=== PATIENT | female | born 1955 | race Caucasian/White ===

== ENCOUNTER 2016-02-23 11:39 | Inpatient (IN) | payer BC ==
[~2016-02-23] VITALS: Ht 167.6 cm; Wt 159.9 kg
[~2016-02-23 11:39] MED LIST: AMLODIPINE BESY10 MG PO; ATORVASTATIN CA40 MG PO; BLOOD GLUCOSE1 EACH MC; CATAPRES0.1 MG PO; CENTRUM COMPLE1 EACH PO; CENTRUM SILVER1 EAC3 PO; COUMADIN2.5 MG PO; COUMADIN5 MG PO; DIAZEPAM5 MG PO; DILAUDID2 MG PO; ERGOCALCIF50000 UNIT PO; EXFORGE HCT 5-1 EACH PO; FEROSUL325 MG PO; FERROUS SULFAT325 MG PO; FLAGYL500 MG PO; FUROSEMIDE40 MG PO; GLUCOPHAGE500 MG PO; HYDROCHLOROTH12.5 M3 PO; HYZAAR 100-21 TABLET PO; KLOR-CON M1010 MEQ PO; LANCETS1 EACH MC; LOPRESSOR50 MG PO; LOSARTAN-HCTZ1 EAC3 PO; METFORMIN HCL500 MG PO; METHOCARBAMOL750 MG PO; METOPROLOL SUCC25 MG PO; METRONIDAZOLE500 MG PO; NORVASC10 MG PO; PERCOCET 10/1 TABLET PO; SIMVASTATIN40 M1 PO; TEST N'GO1 EACH MC; TOPROL XL25 MG PO; TYLENOL REGULA325 MG PO; VALIUM5 MG PO; WARFARIN SODIUM5 MG PO; XANAX XR0.5 MG PO; XANAX0.5 MG PO
[2016-02-23 12:39] LABS: HEMATOCRIT 46.4 % (36.0-46.0); MCH 29.4 PG (29.0-34.0); MCHC 31.3 G/DL (30.0-36.0); MCV 94.1 FL (83-99); MEAN PLAT.VOLUME 11.1 uM^3 (9.5-12.4); PLATELET COUNT 254 K/uL (156-360); RBC DIS.WIDTH-CV 14.6 % (11.8-14.6); RBC DIS.WIDTH-SD 47.8 % (39-53); RED BLOOD COUNT 4.93 M/uL (3.80-5.20); WHITE BLOOD COUNT 10.9 K/uL (4.1-10.2)
[2016-02-23 12:51] LABS: CHLORIDE 95 mEq/L (99-109); POTASSIUM 3.8 mEq/L (3.7-5.4); SODIUM 140 mEq/L (136-147)
[2016-02-23 12:53] LABS: GLUCOSE 137 mg/dL (70-99)
[2016-02-23 12:54] LABS: ANION GAP 15 MEQ/L (2-14)
[2016-02-23 12:57] LABS: GFR ESTIMATE (CALCULATED) > 59 mL/min/
[2016-02-23 12:58] LABS: UREA NITROGEN (BUN) 9 mg/dL (9-23)
[2016-02-23 16:03] LABS: TOTAL BILIRUBIN 1.3 mg/dL (0.0-1.0)
[2016-02-23 16:04] LABS: ALKALINE PHOSPHATASE 118 IU/L (3-129)
[2016-02-23 16:07] LABS: DIRECT BILIRUBIN 0.4 mg/dL (0.0-0.3)
[2016-02-23 16:13] LABS: EOSINOPHIL (%) 1.6 % (0-5); EOSINOPHIL COUNT 0.2 K/uL (0-0.3); IMMATURE GRANULOCYTE (%) 0.2 % (0.0-0.7); LYMPHOCYTE COUNT 1.8 K/uL (1.0-2.8); MONOCYTE (%) 6.9 % (3-12); MONOCYTE COUNT 0.7 K/uL (0-0.8); NEUTROPHIL (%) 73.7 % (45-76); NEUTROPHIL COUNT 7.6 K/uL (1.8-6.4)
[2016-02-23] MEDS ORDERED: NORVASC5 MG PO (17:15)
[2016-02-23] MEDS ORDERED: COZAAR100 MG PO (17:15)
[2016-02-23] MEDS ORDERED: LASIX80 MG PO (17:18)
[2016-02-23] MEDS ORDERED: PRADAXA150 MG PO (17:19)
[2016-02-23 20:04] VITALS: BP 141/73
[2016-02-24 05:57] VITALS: BP 136/62
[2016-02-24 07:02] LABS: POINT-OF-CARE METER ID UU13113700
[2016-02-24 07:53] VITALS: BP 114/65
[2016-02-24 10:27] LABS: EOSINOPHIL (%) 3.8 % (0-5); EOSINOPHIL COUNT 0.4 K/uL (0-0.3); HEMATOCRIT 44.8 % (36.0-46.0); IMMATURE GRANULOCYTE (%) 0.2 % (0.0-0.7); LYMPHOCYTE COUNT 1.5 K/uL (1.0-2.8); MCH 30.7 PG (29.0-34.0); MCHC 31.9 G/DL (30.0-36.0); MCV 96.1 FL (83-99); MEAN PLAT.VOLUME 11.7 uM^3 (9.5-12.4); MONOCYTE (%) 7.8 % (3-12); MONOCYTE COUNT 0.8 K/uL (0-0.8); NEUTROPHIL (%) 72.2 % (45-76); PLATELET COUNT 239 K/uL (156-360); RBC DIS.WIDTH-CV 14.7 % (11.8-14.6); RBC DIS.WIDTH-SD 51.7 % (39-53); RED BLOOD COUNT 4.66 M/uL (3.80-5.20); WHITE BLOOD COUNT 9.7 K/uL (4.1-10.2)
[2016-02-24 10:56] LABS: ANION GAP 7 MEQ/L (2-14); CHLORIDE 95 MEQ/L (99-109); GFR ESTIMATE (CALCULATED) > 59 mL/min/; GLUCOSE 162 mg/dL (70-99); POTASSIUM 3.6 MEQ/L (3.7-5.4); SAMPLE HEMOLYSIS CHECK 0; SAMPLE ICTERIC CHECK 0; SAMPLE LIPEMIA CHECK 0; SODIUM 139 MEQ/L (136-147); UREA NITROGEN (BUN) 9 mg/dL (9-23)
[2016-02-24 10:59] LABS: TROP-I INTERPRETATION NEGATIVE; TROPONIN-I < 0.01 ng/mL (0.0-0.30)
[2016-02-24 11:10] VITALS: BP 111/56
[2016-02-24 16:21] VITALS: BP 113/65
[2016-02-24 17:01] LABS: POINT-OF-CARE METER ID UU13113725
[2016-02-24 20:59] LABS: POINT-OF-CARE METER ID UU13113725
[2016-02-24 23:10] VITALS: BP 127/59
[2016-02-25 06:01] LABS: POINT-OF-CARE METER ID UU13113717
[2016-02-25 07:40] VITALS: BP 130/61
[2016-02-25 16:27] LABS: POINT-OF-CARE METER ID UU13113717
[2016-02-25 17:26] VITALS: BP 113/65
[2016-02-25 21:36] LABS: POINT-OF-CARE METER ID UU13113725
[2016-02-26 06:27] LABS: POINT-OF-CARE METER ID UU13113725
[2016-02-26 06:54] LABS: ANION GAP 8 MEQ/L (2-14); CHLORIDE 97 MEQ/L (99-109); GFR ESTIMATE (CALCULATED) 49 mL/min/; GLUCOSE 126 mg/dL (70-99); POTASSIUM 3.8 MEQ/L (3.7-5.4); SAMPLE HEMOLYSIS CHECK 0; SAMPLE ICTERIC CHECK 0; SAMPLE LIPEMIA CHECK 0; SODIUM 137 MEQ/L (136-147); UREA NITROGEN (BUN) 14 mg/dL (9-23)
[2016-02-26 07:26] LABS: HEMATOCRIT 39.8 % (36.0-46.0); MCHC 31.2 G/DL (30.0-36.0); MCV 96.4 FL (83-99); MEAN PLAT.VOLUME 11.6 uM^3 (9.5-12.4); PLATELET COUNT 192 K/uL (156-360); RBC DIS.WIDTH-CV 14.7 % (11.8-14.6); RED BLOOD COUNT 4.13 M/uL (3.80-5.20); WHITE BLOOD COUNT 10.4 K/uL (4.1-10.2)
[2016-02-26 08:46] VITALS: BP 142/91
[2016-02-26 11:36] LABS: POINT-OF-CARE METER ID UU13113717
[2016-02-26] MEDS ORDERED: KETOCONAZOLE60 GM TP (12:49)
[2016-02-26] MEDS ORDERED: BACTRIM,SEPT1 TABLET PO (12:49)
== END 2016-02-26 13:43 | disposition home or self-care (01) | DRG 603 ==
LOC: EME 11:39 → EDOF 18:07 → 5WEST 19:41 → 5EAST 02-24 14:00 → 5WEST 02-24 14:00 → 5EAST 02-24 16:17
PROVIDERS: Hospitalist; Internal Medicine
DX: L03.115 Cellulitis of right lower limb (principal); L97.819 Non-pressure chronic ulcer of other part of right lower leg with unspecified severity; Z99.81 Dependence on supplemental oxygen; L03.116 Cellulitis of left lower limb; E66.01 Morbid (severe) obesity due to excess calories; Z68.43 Body mass index [BMI] 50.0-59.9, adult; B00.1 Herpesviral vesicular dermatitis; I83.208 Varicose veins of unspecified lower extremity with both ulcer of other part of lower extremity and inflammation; I48.2 Chronic atrial fibrillation; I10 Essential (primary) hypertension; I89.0 Lymphedema, not elsewhere classified; Z85.038 Personal history of other malignant neoplasm of large intestine; E87.6 Hypokalemia; Z90.49 Acquired absence of other specified parts of digestive tract; E11.9 Type 2 diabetes mellitus without complications; Z86.711 Personal history of pulmonary embolism; Z86.718 Personal history of other venous thrombosis and embolism; E03.9 Hypothyroidism, unspecified; K43.2 Incisional hernia without obstruction or gangrene; Z79.84 Long term (current) use of oral hypoglycemic drugs; Z79.01 Long term (current) use of anticoagulants; J44.9 Chronic obstructive pulmonary disease, unspecified; L97.829 Non-pressure chronic ulcer of other part of left lower leg with unspecified severity
CPT/HCPCS: 71020; 80048; 80076; 82948; 83605; 83880; 84484; 85025; 85027; 87040; 87070; 87075; 87076; 87077; 87147; 87205; 93970; 94760; 94799; 99281; 99285; G0378; J1940; J3370

== ENCOUNTER 2016-06-17 17:22 | Inpatient (IN) | payer BC ==
[~2016-06-17] VITALS: Ht 167.6 cm; Wt 162.4 kg
[~2016-06-17 17:22] MED LIST changes: +BACTRIM,SEPT1 TABLET PO; +COZAAR100 MG PO; +KETOCONAZOLE60 GM TP; +LASIX80 MG PO; +NORVASC5 MG PO; +PRADAXA150 MG PO
[2016-06-17 19:46] LABS: BASOPHIL COUNT 0.1 K/uL (0-0.1); EOSINOPHIL (%) 1.7 % (0-5); EOSINOPHIL COUNT 0.5 K/uL (0-0.3); HEMATOCRIT 43.3 % (36.0-46.0); IMMATURE GRANULOCYTE (%) 0.8 % (0.0-0.7); IMMATURE GRANULOCYTE COUNT 0.2 K/uL; INSTRUMENT ABS NEUTROPHIL CT 21.5 K/uL; LYMPHOCYTE COUNT 2.7 K/uL (1.0-2.8); MCH 28.4 PG (29.0-34.0); MCHC 30.7 G/DL (30.0-36.0); MCV 92.3 FL (83-99); MEAN PLAT.VOLUME 10.7 uM^3 (9.5-12.4); MONOCYTE (%) 6.4 % (3-12); MONOCYTE COUNT 1.7 K/uL (0-0.8); NEUTROPHIL (%) 80.7 % (45-76); NEUTROPHIL COUNT 21.5 K/uL (1.8-6.4); PLATELET COUNT 261 K/uL (156-360); RBC DIS.WIDTH-CV 15.2 % (11.8-14.6); RBC DIS.WIDTH-SD 51.7 % (39-53); RED BLOOD COUNT 4.69 M/uL (3.80-5.20); WHITE BLOOD COUNT 26.6 K/uL (4.1-10.2)
[2016-06-17 19:56] LABS: CHLORIDE 95 mEq/L (99-109); POTASSIUM 4.6 mEq/L (3.7-5.4); SODIUM 132 mEq/L (136-147)
[2016-06-17 19:58] LABS: GLUCOSE 133 mg/dL (70-99)
[2016-06-17 19:59] LABS: ANION GAP 12 MEQ/L (2-14)
[2016-06-17 20:00] LABS: TOTAL BILIRUBIN 1.1 mg/dL (0.0-1.0)
[2016-06-17 20:01] LABS: ALKALINE PHOSPHATASE 135 IU/L (3-129)
[2016-06-17 20:02] LABS: GFR ESTIMATE (CALCULATED) 29 mL/min/
[2016-06-17 20:03] LABS: UREA NITROGEN (BUN) 41 mg/dL (9-23)
[2016-06-17 23:13] VITALS: BP 112/54
[2016-06-17 23:43] VITALS: BP 143/70
[2016-06-18] VITALS (7 sets, daily range): BP systolic 109–141; BP diastolic 55–70
[2016-06-18 08:41] LABS: EOSINOPHIL COUNT 0.4 K/uL (0-0.3); HEMATOCRIT 39.5 % (36.0-46.0); IMMATURE GRANULOCYTE (%) 0.7 % (0.0-0.7); IMMATURE GRANULOCYTE COUNT 0.2 K/uL; INSTRUMENT ABS NEUTROPHIL CT 17.6 K/uL; MCH 28.6 PG (29.0-34.0); MCHC 30.9 G/DL (30.0-36.0); MCV 92.5 FL (83-99); MONOCYTE (%) 6.2 % (3-12); MONOCYTE COUNT 1.3 K/uL (0-0.8); NEUTROPHIL (%) 81.8 % (45-76); NEUTROPHIL COUNT 17.6 K/uL (1.8-6.4); PLATELET COUNT 232 K/uL (156-360); RBC DIS.WIDTH-CV 15.1 % (11.8-14.6); RBC DIS.WIDTH-SD 51.6 % (39-53); RED BLOOD COUNT 4.27 M/uL (3.80-5.20); WHITE BLOOD COUNT 21.5 K/uL (4.1-10.2)
[2016-06-18 09:27] LABS: ANION GAP 13 MEQ/L (2-14); CHLORIDE 95 MEQ/L (99-109); GFR ESTIMATE (CALCULATED) 33 mL/min/; GLUCOSE 181 mg/dL (70-99); POTASSIUM 3.9 MEQ/L (3.7-5.4); SAMPLE HEMOLYSIS CHECK 0; SAMPLE ICTERIC CHECK 0; SAMPLE LIPEMIA CHECK 0; SODIUM 131 MEQ/L (136-147); UREA NITROGEN (BUN) 41 mg/dL (9-23)
[2016-06-18 15:44] LABS: TROP-I INTERPRETATION NEGATIVE; TROPONIN-I < 0.01 ng/mL (0.0-0.30)
[2016-06-18] MEDS ORDERED: NYSTATIN-TRIAMC15 GM TP (17:56)
[2016-06-18 22:00] LABS: TROP-I INTERPRETATION NEGATIVE; TROPONIN-I < 0.01 ng/mL (0.0-0.30)
[2016-06-19 01:30] LABS: TROP-I INTERPRETATION NEGATIVE; TROPONIN-I < 0.01 ng/mL (0.0-0.30)
[2016-06-19 03:19] VITALS: BP 128/62
[2016-06-19 07:10] VITALS: BP 126/69
[2016-06-19 07:21] LABS: EOSINOPHIL (%) 2.4 % (0-5); EOSINOPHIL COUNT 0.5 K/uL (0-0.3); HEMATOCRIT 39.7 % (36.0-46.0); IMMATURE GRANULOCYTE (%) 0.6 % (0.0-0.7); IMMATURE GRANULOCYTE COUNT 0.1 K/uL; INSTRUMENT ABS NEUTROPHIL CT 15.1 K/uL; LYMPHOCYTE COUNT 2.5 K/uL (1.0-2.8); MCH 28.3 PG (29.0-34.0); MCV 94.3 FL (83-99); MEAN PLAT.VOLUME 11.1 uM^3 (9.5-12.4); MONOCYTE (%) 10.3 % (3-12); MONOCYTE COUNT 2.1 K/uL (0-0.8); NEUTROPHIL (%) 74.2 % (45-76); NEUTROPHIL COUNT 15.1 K/uL (1.8-6.4); PLATELET COUNT 264 K/uL (156-360); RBC DIS.WIDTH-CV 14.9 % (11.8-14.6); RED BLOOD COUNT 4.21 M/uL (3.80-5.20); WHITE BLOOD COUNT 20.4 K/uL (4.1-10.2)
[2016-06-19 07:43] LABS: ALKALINE PHOSPHATASE 115 IU/L (3-129); ANION GAP 12 MEQ/L (2-14); CHLORIDE 101 MEQ/L (99-109); GFR ESTIMATE (CALCULATED) 44 mL/min/; GLUCOSE 127 mg/dL (70-99); MAGNESIUM 2.5 mg/dl (1.3-2.7); POTASSIUM 4.5 MEQ/L (3.7-5.4); SAMPLE HEMOLYSIS CHECK 0; SAMPLE ICTERIC CHECK 0; SAMPLE LIPEMIA CHECK 0; SODIUM 135 MEQ/L (136-147); TOTAL BILIRUBIN 0.9 MG/DL (0.0-1.0); UREA NITROGEN (BUN) 33 mg/dL (9-23); URIC ACID 8.1 mg/dL (3.1-9.2)
[2016-06-19 11:17] LABS: Estimated Average Glucose 140 mg/dL (70-123); HEMOGLOBIN A1c (GLYCOHEMOGLOB) 6.5 % HGB (Below 5.7)
[2016-06-19 12:00] VITALS: BP 118/95
[2016-06-19 15:35] VITALS: BP 126/68
[2016-06-19 19:12] VITALS: BP 151/68
[2016-06-19 22:30] LABS: POINT-OF-CARE METER ID UU14162508
[2016-06-20 00:10] VITALS: BP 136/65
[2016-06-20 04:11] VITALS: BP 156/67
[2016-06-20 06:28] LABS: POINT-OF-CARE METER ID UU14162508
[2016-06-20 07:00] LABS: BASOPHIL COUNT 0.1 K/uL (0-0.1); EOSINOPHIL COUNT 0.5 K/uL (0-0.3); HEMATOCRIT 39.7 % (36.0-46.0); IMMATURE GRANULOCYTE (%) 1.2 % (0.0-0.7); IMMATURE GRANULOCYTE COUNT 0.2 K/uL; INSTRUMENT ABS NEUTROPHIL CT 13.1 K/uL; LYMPHOCYTE COUNT 2.4 K/uL (1.0-2.8); MCH 28.4 PG (29.0-34.0); MCHC 30.2 G/DL (30.0-36.0); MCV 94.1 FL (83-99); MEAN PLAT.VOLUME 10.7 uM^3 (9.5-12.4); MONOCYTE (%) 9.2 % (3-12); MONOCYTE COUNT 1.7 K/uL (0-0.8); NEUTROPHIL (%) 72.7 % (45-76); NEUTROPHIL COUNT 13.1 K/uL (1.8-6.4); PLATELET COUNT 251 K/uL (156-360); RBC DIS.WIDTH-CV 14.7 % (11.8-14.6); RBC DIS.WIDTH-SD 51.2 % (39-53); RED BLOOD COUNT 4.22 M/uL (3.80-5.20)
[2016-06-20 07:29] LABS: ALKALINE PHOSPHATASE 125 IU/L (3-129); ANION GAP 8 MEQ/L (2-14); CHLORIDE 100 MEQ/L (99-109); GFR ESTIMATE (CALCULATED) 49 mL/min/; GLUCOSE 136 mg/dL (70-99); POTASSIUM 4.5 MEQ/L (3.7-5.4); SAMPLE HEMOLYSIS CHECK 0; SAMPLE ICTERIC CHECK 0; SAMPLE LIPEMIA CHECK 0; SODIUM 136 MEQ/L (136-147); UREA NITROGEN (BUN) 24 mg/dL (9-23)
[2016-06-20 07:33] LABS: TOTAL BILIRUBIN 0.6 MG/DL (0.0-1.0)
[2016-06-20 11:21] VITALS: BP 129/64
[2016-06-20 11:52] LABS: POINT-OF-CARE METER ID UU14162508
[2016-06-20 16:00] VITALS: BP 124/62
[2016-06-20 16:44] LABS: POINT-OF-CARE METER ID UU14162508
[2016-06-20 19:50] VITALS: BP 123/64
[2016-06-20 23:03] LABS: POINT-OF-CARE METER ID UU14162508
[2016-06-21 00:12] VITALS: BP 145/63
[2016-06-21 03:21] VITALS: BP 141/68
[2016-06-21 06:43] LABS: POINT-OF-CARE METER ID UU14162508
[2016-06-21 07:14] LABS: EOSINOPHIL (%) 4.3 % (0-5); EOSINOPHIL COUNT 0.7 K/uL (0-0.3); HEMATOCRIT 39.2 % (36.0-46.0); IMMATURE GRANULOCYTE (%) 2.1 % (0.0-0.7); IMMATURE GRANULOCYTE COUNT 0.3 K/uL; INSTRUMENT ABS NEUTROPHIL CT 11.5 K/uL; LYMPHOCYTE COUNT 2.2 K/uL (1.0-2.8); MCH 28.2 PG (29.0-34.0); MCHC 30.1 G/DL (30.0-36.0); MCV 93.8 FL (83-99); MEAN PLAT.VOLUME 10.2 uM^3 (9.5-12.4); MONOCYTE (%) 7.8 % (3-12); MONOCYTE COUNT 1.2 K/uL (0-0.8); NEUTROPHIL (%) 71.7 % (45-76); NEUTROPHIL COUNT 11.5 K/uL (1.8-6.4); PLATELET COUNT 269 K/uL (156-360); RBC DIS.WIDTH-CV 14.6 % (11.8-14.6); RBC DIS.WIDTH-SD 51.2 % (39-53); RED BLOOD COUNT 4.18 M/uL (3.80-5.20)
[2016-06-21 07:41] LABS: ALKALINE PHOSPHATASE 107 IU/L (3-129); ANION GAP 8 MEQ/L (2-14); CHLORIDE 103 MEQ/L (99-109); GFR ESTIMATE (CALCULATED) 54 mL/min/; GLUCOSE 135 mg/dL (70-99); POTASSIUM 4.5 MEQ/L (3.7-5.4); SAMPLE HEMOLYSIS CHECK 0; SAMPLE ICTERIC CHECK 0; SAMPLE LIPEMIA CHECK 0; SODIUM 137 MEQ/L (136-147); UREA NITROGEN (BUN) 19 mg/dL (9-23)
[2016-06-21 07:48] LABS: TOTAL BILIRUBIN 0.4 MG/DL (0.0-1.0)
[2016-06-21 08:16] VITALS: BP 138/75
[2016-06-21 11:30] VITALS: BP 142/62
[2016-06-21 11:48] LABS: POINT-OF-CARE METER ID UU14162508
[2016-06-21 15:10] VITALS: BP 141/65
[2016-06-21 16:21] LABS: POINT-OF-CARE METER ID UU14162508
[2016-06-21 23:52] VITALS: BP 131/63
[2016-06-22 04:33] LABS: ADD MIUA? NO; BILIRUBIN NEGATIVE; BLOOD NEGATIVE; COLOR YELLOW ((YELLOW)); GLUCOSE (STRIP) NEGATIVE; KETONES NEGATIVE; LEUKOCYTES NEGATIVE; NITRITE NEGATIVE; PROTEIN (STRIP) NEGATIVE; SPECIFIC GRAVITY 1.017 (1.000-1.030); UCUL ADDED? NO; UROBILINOGEN 0.2 MG/DL (0.2-1.0)
[2016-06-22 06:36] LABS: POINT-OF-CARE METER ID UU14162508
[2016-06-22 06:55] LABS: EOSINOPHIL (%) 5.2 % (0-5); EOSINOPHIL COUNT 0.7 K/uL (0-0.3); HEMATOCRIT 39.5 % (36.0-46.0); IMMATURE GRANULOCYTE (%) 2.9 % (0.0-0.7); IMMATURE GRANULOCYTE COUNT 0.4 K/uL; INSTRUMENT ABS NEUTROPHIL CT 8.7 K/uL; LYMPHOCYTE COUNT 2.8 K/uL (1.0-2.8); MCH 27.8 PG (29.0-34.0); MCHC 29.4 G/DL (30.0-36.0); MCV 94.5 FL (83-99); MEAN PLAT.VOLUME 10.6 uM^3 (9.5-12.4); MONOCYTE (%) 9.4 % (3-12); MONOCYTE COUNT 1.3 K/uL (0-0.8); NEUTROPHIL (%) 62.6 % (45-76); NEUTROPHIL COUNT 8.7 K/uL (1.8-6.4); PLATELET COUNT 280 K/uL (156-360); RBC DIS.WIDTH-CV 14.7 % (11.8-14.6); RBC DIS.WIDTH-SD 51.8 % (39-53); RED BLOOD COUNT 4.18 M/uL (3.80-5.20)
[2016-06-22 07:40] VITALS: BP 124/64
[2016-06-22 07:53] LABS: ALKALINE PHOSPHATASE 94 IU/L (3-129); ANION GAP 7 MEQ/L (2-14); CHLORIDE 102 MEQ/L (99-109); GFR ESTIMATE (CALCULATED) > 59 mL/min/; GLUCOSE 114 mg/dL (70-99); POTASSIUM 4.1 MEQ/L (3.7-5.4); SAMPLE HEMOLYSIS CHECK 0; SAMPLE ICTERIC CHECK 0; SAMPLE LIPEMIA CHECK 0; SODIUM 137 MEQ/L (136-147); TOTAL BILIRUBIN 0.4 MG/DL (0.0-1.0); UREA NITROGEN (BUN) 16 mg/dL (9-23)
[2016-06-22 12:20] VITALS: BP 126/66
[2016-06-22 12:20] LABS: POINT-OF-CARE METER ID UU14162508
[2016-06-22 15:30] VITALS: BP 121/69
[2016-06-22 16:44] LABS: POINT-OF-CARE METER ID UU14162508
[2016-06-22 21:36] LABS: POINT-OF-CARE METER ID UU14162508
[2016-06-22 23:12] VITALS: BP 128/70
[2016-06-23 08:25] VITALS: BP 143/70
[2016-06-23 12:10] LABS: POINT-OF-CARE METER ID UU14162508
[2016-06-23 15:49] LABS: POINT-OF-CARE METER ID UU14162508
[2016-06-23 16:10] VITALS: BP 143/65
[2016-06-23 21:48] LABS: POINT-OF-CARE METER ID UU14162508
[2016-06-23 23:18] VITALS: BP 142/67
[2016-06-24 06:48] LABS: POINT-OF-CARE METER ID UU14162508
[2016-06-24 07:05] LABS: EOSINOPHIL (%) 4.9 % (0-5); EOSINOPHIL COUNT 0.6 K/uL (0-0.3); HEMATOCRIT 38.1 % (36.0-46.0); IMMATURE GRANULOCYTE (%) 1.5 % (0.0-0.7); IMMATURE GRANULOCYTE COUNT 0.2 K/uL; INSTRUMENT ABS NEUTROPHIL CT 7.8 K/uL; LYMPHOCYTE COUNT 2.8 K/uL (1.0-2.8); MCH 28.9 PG (29.0-34.0); MCHC 30.7 G/DL (30.0-36.0); MCV 94.1 FL (83-99); MEAN PLAT.VOLUME 10.8 uM^3 (9.5-12.4); MONOCYTE (%) 7.6 % (3-12); MONOCYTE COUNT 0.9 K/uL (0-0.8); NEUTROPHIL (%) 63.4 % (45-76); NEUTROPHIL COUNT 7.8 K/uL (1.8-6.4); PLATELET COUNT 288 K/uL (156-360); RBC DIS.WIDTH-CV 14.6 % (11.8-14.6); RBC DIS.WIDTH-SD 51.2 % (39-53); RED BLOOD COUNT 4.05 M/uL (3.80-5.20); WHITE BLOOD COUNT 12.3 K/uL (4.1-10.2)
[2016-06-24 07:30] VITALS: BP 151/68
[2016-06-24 07:34] LABS: ANION GAP 9 MEQ/L (2-14); CHLORIDE 101 MEQ/L (99-109); GFR ESTIMATE (CALCULATED) > 59 mL/min/; GLUCOSE 124 mg/dL (70-99); SAMPLE HEMOLYSIS CHECK 0; SAMPLE ICTERIC CHECK 0; SAMPLE LIPEMIA CHECK 0; SODIUM 140 MEQ/L (136-147); UREA NITROGEN (BUN) 11 mg/dL (9-23)
[2016-06-24 07:39] LABS: ALKALINE PHOSPHATASE 120 IU/L (3-129); TOTAL BILIRUBIN 0.3 MG/DL (0.0-1.0)
[2016-06-24 11:41] LABS: POINT-OF-CARE METER ID UU14162508
[2016-06-24 15:35] VITALS: BP 150/70
[2016-06-24 16:52] LABS: POINT-OF-CARE METER ID UU14162508
[2016-06-24 22:03] LABS: POINT-OF-CARE METER ID UU14162508
[2016-06-25 00:22] VITALS: BP 124/58
[2016-06-25 06:30] LABS: POINT-OF-CARE METER ID UU14162508
[2016-06-25 07:24] VITALS: BP 130/95
[2016-06-25 07:26] LABS: HEMATOCRIT 39.6 % (36.0-46.0); MCH 28.1 PG (29.0-34.0); MCHC 29.8 G/DL (30.0-36.0); MCV 94.3 FL (83-99); MEAN PLAT.VOLUME 10.7 uM^3 (9.5-12.4); PLATELET COUNT 304 K/uL (156-360); RBC DIS.WIDTH-CV 14.6 % (11.8-14.6); RBC DIS.WIDTH-SD 50.5 % (39-53); WHITE BLOOD COUNT 11.4 K/uL (4.1-10.2)
[2016-06-25] MEDS ORDERED: DICLOXACILLIN500 MG PO ×2 (13:27→13:58)
[2016-06-25] MEDS ORDERED: BACTRIM,SEPT1 TABLET PO ×2 (13:28→13:58)
[2016-06-25] MEDS ORDERED: ALPRAZOLAM0.25 M2 PO (13:58)
[2016-06-25] MEDS ORDERED: DOCUSATE SODIU100 MG PO (13:58)
[2016-06-25] MEDS ORDERED: FLUCONAZOLE200 MG PO (13:58)
[2016-06-25 16:36] LABS: POINT-OF-CARE METER ID UU14162508
== END 2016-06-25 18:02 | disposition home health service (06) | DRG 871 ==
LOC: EME 17:22 → 2EAST 20:55 → EDOF 20:55 → 2EAST 22:36
PROVIDERS: Hospitalist; Internal Medicine; Physician Assistant
DX: A41.9 Sepsis, unspecified organism (principal); N17.0 Acute kidney failure with tubular necrosis; L03.116 Cellulitis of left lower limb; L03.115 Cellulitis of right lower limb; Z68.43 Body mass index [BMI] 50.0-59.9, adult; F33.9 Major depressive disorder, recurrent, unspecified; L97.911 Non-pressure chronic ulcer of unspecified part of right lower leg limited to breakdown of skin; L97.921 Non-pressure chronic ulcer of unspecified part of left lower leg limited to breakdown of skin; E66.2 Morbid (severe) obesity with alveolar hypoventilation; I50.32 Chronic diastolic (congestive) heart failure; R65.10 Systemic inflammatory response syndrome (SIRS) of non-infectious origin without acute organ dysfunction; E11.9 Type 2 diabetes mellitus without complications; I95.9 Hypotension, unspecified; I48.0 Paroxysmal atrial fibrillation; I11.0 Hypertensive heart disease with heart failure; I48.2 Chronic atrial fibrillation; I87.8 Other specified disorders of veins; G89.29 Other chronic pain; M12.9 Arthropathy, unspecified; I89.0 Lymphedema, not elsewhere classified; L30.4 Erythema intertrigo; M54.9 Dorsalgia, unspecified; F41.9 Anxiety disorder, unspecified; G47.00 Insomnia, unspecified; I89.8 Other specified noninfective disorders of lymphatic vessels and lymph nodes; E03.9 Hypothyroidism, unspecified; Z79.01 Long term (current) use of anticoagulants; Z87.891 Personal history of nicotine dependence; Z98.84 Bariatric surgery status; Z99.81 Dependence on supplemental oxygen; Z73.6 Limitation of activities due to disability; Z90.49 Acquired absence of other specified parts of digestive tract; Z85.038 Personal history of other malignant neoplasm of large intestine; Z08 Encounter for follow-up examination after completed treatment for malignant neoplasm; Z09 Encounter for follow-up examination after completed treatment for conditions other than malignant neoplasm; Z86.711 Personal history of pulmonary embolism; Z86.718 Personal history of other venous thrombosis and embolism; Z88.5 Allergy status to narcotic agent; Z88.1 Allergy status to other antibiotic agents; Z83.3 Family history of diabetes mellitus; Z82.3 Family history of stroke; Z82.49 Family history of ischemic heart disease and other diseases of the circulatory system; Z81.8 Family history of other mental and behavioral disorders
CPT/HCPCS: 71010; 80048; 80053; 80202; 81003; 82948; 83036; 83605; 83735; 84100; 84484; 84550; 85025; 85027; 87040; 87070; 87075; 87205; 93005; 94799; 97530 GP; 99202; 99281; 99285; J0295; J0692; J1170; J1200; J1815; J2543; J3370; J7030; J7050

== ENCOUNTER 2016-09-03 13:54 | Inpatient (IN) | payer BC ==
[~2016-09-03] VITALS: Ht 167.6 cm; Wt 162.1 kg
[~2016-09-03 13:54] MED LIST changes: +ALPRAZOLAM0.25 M2 PO; +DICLOXACILLIN500 MG PO; +DOCUSATE SODIU100 MG PO; +FLUCONAZOLE200 MG PO; +NYSTATIN-TRIAMC15 GM TP
[2016-09-03 14:55] LABS: BICARBONATE 36.3 mEq/L (22-26); METHEMOGLOBIN 0.8 % (0-1.5); PCO2 56 mm Hg (35-45); PO2 64 mm Hg (80-100); pH 7.42 (7.35-7.45)
[2016-09-03 14:56] LABS: COMMENTS - BLOOD GASES A+C+; DEVICE NC; O2 FLOW 2 L/MIN; SITE RR
[2016-09-03 15:27] LABS: EOSINOPHIL (%) 2.1 % (0-5); EOSINOPHIL COUNT 0.3 K/uL (0-0.3); HEMATOCRIT 40.2 % (36.0-46.0); IMMATURE GRANULOCYTE (%) 0.4 % (0.0-0.7); IMMATURE GRANULOCYTE COUNT 0.1 K/uL; INSTRUMENT ABS NEUTROPHIL CT 9.5 K/uL; LYMPHOCYTE COUNT 2.4 K/uL (1.0-2.8); MCH 27.6 PG (29.0-34.0); MCHC 29.9 G/DL (30.0-36.0); MCV 92.6 FL (83-99); MEAN PLAT.VOLUME 11.2 uM^3 (9.5-12.4); MONOCYTE (%) 7.4 % (3-12); NEUTROPHIL (%) 71.5 % (45-76); NEUTROPHIL COUNT 9.5 K/uL (1.8-6.4); PLATELET COUNT 222 K/uL (156-360); RBC DIS.WIDTH-CV 14.6 % (11.8-14.6); RBC DIS.WIDTH-SD 49.4 % (39-53); RED BLOOD COUNT 4.34 M/uL (3.80-5.20); WHITE BLOOD COUNT 13.2 K/uL (4.1-10.2)
[2016-09-03 15:37] LABS: CHLORIDE 97 mEq/L (99-109); POTASSIUM 3.9 mEq/L (3.7-5.4); SODIUM 140 mEq/L (136-147)
[2016-09-03 15:39] LABS: GLUCOSE 150 mg/dL (70-99)
[2016-09-03 15:40] LABS: ANION GAP 12 MEQ/L (2-14)
[2016-09-03 15:43] LABS: GFR ESTIMATE (CALCULATED) > 59 mL/min/
[2016-09-03 15:44] LABS: UREA NITROGEN (BUN) 21 mg/dL (9-23)
[2016-09-03 15:48] LABS: TROP-I INTERPRETATION NEGATIVE; TROPONIN-I < 0.01 ng/mL (0.0-0.30)
[2016-09-03] MEDS ORDERED: MULTAQ400 MG PO (19:36)
[2016-09-03] MEDS ORDERED: COL-RITE100 M1 PO (19:36)
[2016-09-03] MEDS ORDERED: OXYCONTIN15 MG PO (19:37)
[2016-09-03] MEDS ORDERED: VALIUM10 MG PO (19:38)
[2016-09-03 20:21] VITALS: BP 141/64
[2016-09-03 22:03] LABS: TROP-I INTERPRETATION NEGATIVE; TROPONIN-I < 0.01 ng/mL (0.0-0.30)
[2016-09-03 23:45] VITALS: BP 136/63
[2016-09-04 04:09] VITALS: BP 108/48
[2016-09-04 04:13] LABS: HEMATOCRIT 37.1 % (36.0-46.0); MCH 27.8 PG (29.0-34.0); MCHC 29.9 G/DL (30.0-36.0); MCV 92.8 FL (83-99); MEAN PLAT.VOLUME 11.2 uM^3 (9.5-12.4); PLATELET COUNT 190 K/uL (156-360); RBC DIS.WIDTH-CV 14.7 % (11.8-14.6); RBC DIS.WIDTH-SD 49.9 % (39-53); WHITE BLOOD COUNT 11.9 K/uL (4.1-10.2)
[2016-09-04 04:38] LABS: TROP-I INTERPRETATION NEGATIVE; TROPONIN-I < 0.01 ng/mL (0.0-0.30)
[2016-09-04 04:49] LABS: CHLORIDE 97 mEq/L (99-109); POTASSIUM 3.6 mEq/L (3.7-5.4); SODIUM 142 mEq/L (136-147)
[2016-09-04 04:51] LABS: GLUCOSE 125 mg/dL (70-99)
[2016-09-04 04:52] LABS: ANION GAP 11 MEQ/L (2-14)
[2016-09-04 04:55] LABS: GFR ESTIMATE (CALCULATED) > 59 mL/min/
[2016-09-04 04:56] LABS: UREA NITROGEN (BUN) 18 mg/dL (9-23)
[2016-09-04 07:33] LABS: POINT-OF-CARE METER ID UU14188625
[2016-09-04 07:42] VITALS: BP 171/63
[2016-09-04 11:23] VITALS: BP 122/61
[2016-09-04 11:23] LABS: POINT-OF-CARE METER ID UU14174225
[2016-09-04 15:44] VITALS: BP 117/61
[2016-09-04 16:56] LABS: POINT-OF-CARE METER ID UU14188625
[2016-09-04 19:51] VITALS: BP 118/59
[2016-09-05] VITALS (7 sets, daily range): BP systolic 88–136; BP diastolic 51–68
[2016-09-05 08:21] LABS: POINT-OF-CARE METER ID UU13113717
[2016-09-05 08:26] LABS: EOSINOPHIL (%) 4.8 % (0-5); EOSINOPHIL COUNT 0.5 K/uL (0-0.3); HEMATOCRIT 39.9 % (36.0-46.0); IMMATURE GRANULOCYTE (%) 0.3 % (0.0-0.7); INSTRUMENT ABS NEUTROPHIL CT 7.1 K/uL; LYMPHOCYTE COUNT 2.1 K/uL (1.0-2.8); MCH 27.6 PG (29.0-34.0); MCHC 29.6 G/DL (30.0-36.0); MCV 93.2 FL (83-99); MEAN PLAT.VOLUME 11.2 uM^3 (9.5-12.4); MONOCYTE (%) 8.8 % (3-12); MONOCYTE COUNT 0.9 K/uL (0-0.8); NEUTROPHIL (%) 66.5 % (45-76); NEUTROPHIL COUNT 7.1 K/uL (1.8-6.4); PLATELET COUNT 214 K/uL (156-360); RBC DIS.WIDTH-SD 50.9 % (39-53); RED BLOOD COUNT 4.28 M/uL (3.80-5.20); WHITE BLOOD COUNT 10.6 K/uL (4.1-10.2)
[2016-09-05 08:55] LABS: ANION GAP 8 MEQ/L (2-14); CHLORIDE 98 MEQ/L (99-109); GFR ESTIMATE (CALCULATED) > 59 mL/min/; GLUCOSE 142 mg/dL (70-99); POTASSIUM 3.7 MEQ/L (3.7-5.4); SAMPLE HEMOLYSIS CHECK 0; SAMPLE ICTERIC CHECK 0; SAMPLE LIPEMIA CHECK 0; SODIUM 141 MEQ/L (136-147); UREA NITROGEN (BUN) 17 mg/dL (9-23)
[2016-09-05 11:44] LABS: POINT-OF-CARE METER ID UU14188625
[2016-09-06 03:22] VITALS: BP 130/56
[2016-09-06 08:27] VITALS: BP 121/60
[2016-09-06 10:37] LABS: EOSINOPHIL COUNT 0.6 K/uL (0-0.3); IMMATURE GRANULOCYTE (%) 0.4 % (0.0-0.7); INSTRUMENT ABS NEUTROPHIL CT 6.8 K/uL; LYMPHOCYTE COUNT 2.1 K/uL (1.0-2.8); MCH 27.4 PG (29.0-34.0); MCHC 28.8 G/DL (30.0-36.0); MCV 95.1 FL (83-99); MONOCYTE (%) 8.1 % (3-12); MONOCYTE COUNT 0.8 K/uL (0-0.8); NEUTROPHIL (%) 64.7 % (45-76); NEUTROPHIL COUNT 6.8 K/uL (1.8-6.4); PLATELET COUNT 227 K/uL (156-360); RBC DIS.WIDTH-CV 15.1 % (11.8-14.6); RBC DIS.WIDTH-SD 53.3 % (39-53); RED BLOOD COUNT 4.31 M/uL (3.80-5.20); WHITE BLOOD COUNT 10.4 K/uL (4.1-10.2)
[2016-09-06 11:00] LABS: ANION GAP 5 MEQ/L (2-14); CHLORIDE 95 MEQ/L (99-109); GFR ESTIMATE (CALCULATED) > 59 mL/min/; GLUCOSE 131 mg/dL (70-99); POTASSIUM 3.8 MEQ/L (3.7-5.4); SAMPLE HEMOLYSIS CHECK 0; SAMPLE ICTERIC CHECK 0; SAMPLE LIPEMIA CHECK 0; SODIUM 139 MEQ/L (136-147); UREA NITROGEN (BUN) 17 mg/dL (9-23)
[2016-09-06 16:40] VITALS: BP 127/69
[2016-09-06 19:45] VITALS: BP 97/50
[2016-09-06 21:37] LABS: POINT-OF-CARE METER ID UU14174225
[2016-09-07 00:01] VITALS: BP 110/62
[2016-09-07 04:03] VITALS: BP 117/57
[2016-09-07 08:13] VITALS: BP 123/60
[2016-09-07 12:52] VITALS: BP 128/66
[2016-09-07 14:55] VITALS: BP 129/77
[2016-09-07 19:28] VITALS: BP 121/72
[2016-09-08] VITALS: BP 106/53
[2016-09-08 03:30] VITALS: BP 110/54
[2016-09-08 06:02] LABS: EOSINOPHIL (%) 4.9 % (0-5); EOSINOPHIL COUNT 0.6 K/uL (0-0.3); HEMATOCRIT 34.2 % (36.0-46.0); IMMATURE GRANULOCYTE (%) 0.4 % (0.0-0.7); INSTRUMENT ABS NEUTROPHIL CT 7.9 K/uL; LYMPHOCYTE COUNT 1.9 K/uL (1.0-2.8); MCH 28.3 PG (29.0-34.0); MCHC 30.4 G/DL (30.0-36.0); MCV 92.9 FL (83-99); MEAN PLAT.VOLUME 11.8 uM^3 (9.5-12.4); MONOCYTE (%) 8.1 % (3-12); MONOCYTE COUNT 0.9 K/uL (0-0.8); NEUTROPHIL (%) 69.3 % (45-76); NEUTROPHIL COUNT 7.9 K/uL (1.8-6.4); PLATELET COUNT 189 K/uL (156-360); RBC DIS.WIDTH-CV 15.2 % (11.8-14.6); RBC DIS.WIDTH-SD 52.1 % (39-53); RED BLOOD COUNT 3.68 M/uL (3.80-5.20); WHITE BLOOD COUNT 11.4 K/uL (4.1-10.2)
[2016-09-08 06:34] LABS: ANION GAP 7 MEQ/L (2-14); CHLORIDE 97 MEQ/L (99-109); GFR ESTIMATE (CALCULATED) > 59 mL/min/; GLUCOSE 131 mg/dL (70-99); POTASSIUM 3.6 MEQ/L (3.7-5.4); SAMPLE HEMOLYSIS CHECK 0; SAMPLE ICTERIC CHECK 0; SAMPLE LIPEMIA CHECK 0; SODIUM 139 MEQ/L (136-147); UREA NITROGEN (BUN) 19 mg/dL (9-23)
[2016-09-08 08:13] LABS: INTERNAL CONTROL VALID? YES
[2016-09-08 08:30] VITALS: BP 152/89
[2016-09-08 13:25] VITALS: BP 153/80
[2016-09-08 19:54] VITALS: BP 119/58
[2016-09-09] VITALS (7 sets, daily range): BP systolic 91–133; BP diastolic 48–74
[2016-09-09 09:44] LABS: EOSINOPHIL COUNT 0.6 K/uL (0-0.3); HEMATOCRIT 37.8 % (36.0-46.0); IMMATURE GRANULOCYTE (%) 0.4 % (0.0-0.7); IMMATURE GRANULOCYTE COUNT 0.1 K/uL; INSTRUMENT ABS NEUTROPHIL CT 9.2 K/uL; LYMPHOCYTE COUNT 1.7 K/uL (1.0-2.8); MCH 27.4 PG (29.0-34.0); MCHC 29.6 G/DL (30.0-36.0); MCV 92.4 FL (83-99); MEAN PLAT.VOLUME 11.7 uM^3 (9.5-12.4); MONOCYTE (%) 6.1 % (3-12); MONOCYTE COUNT 0.8 K/uL (0-0.8); NEUTROPHIL (%) 74.7 % (45-76); NEUTROPHIL COUNT 9.2 K/uL (1.8-6.4); PLATELET COUNT 201 K/uL (156-360); RBC DIS.WIDTH-SD 50.8 % (39-53); RED BLOOD COUNT 4.09 M/uL (3.80-5.20); WHITE BLOOD COUNT 12.3 K/uL (4.1-10.2)
[2016-09-09 10:02] LABS: ANION GAP 9 MEQ/L (2-14); CHLORIDE 98 MEQ/L (99-109); POTASSIUM 3.8 MEQ/L (3.7-5.4); SAMPLE HEMOLYSIS CHECK 0; SAMPLE ICTERIC CHECK 0; SAMPLE LIPEMIA CHECK 0; SODIUM 139 MEQ/L (136-147)
[2016-09-09 10:07] LABS: GFR ESTIMATE (CALCULATED) > 59 mL/min/; GLUCOSE 196 mg/dL (70-99); UREA NITROGEN (BUN) 20 mg/dL (9-23)
[2016-09-10 03:36] VITALS: BP 99/55
[2016-09-10 05:56] LABS: EOSINOPHIL (%) 5.3 % (0-5); EOSINOPHIL COUNT 0.6 K/uL (0-0.3); HEMATOCRIT 35.3 % (36.0-46.0); IMMATURE GRANULOCYTE (%) 0.3 % (0.0-0.7); INSTRUMENT ABS NEUTROPHIL CT 7.5 K/uL; MCH 28.4 PG (29.0-34.0); MCHC 30.6 G/DL (30.0-36.0); MCV 92.9 FL (83-99); MONOCYTE (%) 7.7 % (3-12); MONOCYTE COUNT 0.8 K/uL (0-0.8); NEUTROPHIL (%) 68.7 % (45-76); NEUTROPHIL COUNT 7.5 K/uL (1.8-6.4); PLATELET COUNT 190 K/uL (156-360); RBC DIS.WIDTH-CV 15.5 % (11.8-14.6); RBC DIS.WIDTH-SD 52.6 % (39-53); WHITE BLOOD COUNT 10.9 K/uL (4.1-10.2)
[2016-09-10 06:16] LABS: ANION GAP 8 MEQ/L (2-14); CHLORIDE 98 MEQ/L (99-109); GFR ESTIMATE (CALCULATED) > 59 mL/min/; GLUCOSE 132 mg/dL (70-99); POTASSIUM 3.7 MEQ/L (3.7-5.4); SAMPLE HEMOLYSIS CHECK 0; SAMPLE ICTERIC CHECK 0; SAMPLE LIPEMIA CHECK 0; SODIUM 138 MEQ/L (136-147); UREA NITROGEN (BUN) 19 mg/dL (9-23)
[2016-09-10 07:25] VITALS: BP 119/59
[2016-09-10 11:45] VITALS: BP 111/65
[2016-09-10 15:05] VITALS: BP 114/51
[2016-09-10 20:17] VITALS: BP 127/60
[2016-09-11 00:28] VITALS: BP 120/60
[2016-09-11 08:07] VITALS: BP 124/65
[2016-09-11 08:12] LABS: HEMATOCRIT 35.6 % (36.0-46.0); MCH 28.9 PG (29.0-34.0); MCHC 30.9 G/DL (30.0-36.0); MCV 93.4 FL (83-99); MEAN PLAT.VOLUME 11.9 uM^3 (9.5-12.4); PLATELET COUNT 188 K/uL (156-360); RBC DIS.WIDTH-CV 15.4 % (11.8-14.6); RED BLOOD COUNT 3.81 M/uL (3.80-5.20); WHITE BLOOD COUNT 11.7 K/uL (4.1-10.2)
[2016-09-11 09:02] LABS: ANION GAP 9 MEQ/L (2-14); CHLORIDE 97 MEQ/L (99-109); GFR ESTIMATE (CALCULATED) > 59 mL/min/; GLUCOSE 112 mg/dL (70-99); SAMPLE HEMOLYSIS CHECK 0; SAMPLE ICTERIC CHECK 0; SAMPLE LIPEMIA CHECK 0; SODIUM 139 MEQ/L (136-147); UREA NITROGEN (BUN) 17 mg/dL (9-23)
[2016-09-11 12:09] VITALS: BP 106/54
[2016-09-11 13:46] LABS: MAGNESIUM 2.4 mg/dl (1.3-2.7)
[2016-09-11 15:58] VITALS: BP 130/74
[2016-09-11 19:32] VITALS: BP 120/56
[2016-09-12] VITALS (7 sets, daily range): BP systolic 110–146; BP diastolic 57–84
[2016-09-12 06:27] LABS: HEMATOCRIT 36.5 % (36.0-46.0); MCH 27.3 PG (29.0-34.0); MCHC 29.3 G/DL (30.0-36.0); MCV 93.1 FL (83-99); MEAN PLAT.VOLUME 11.9 uM^3 (9.5-12.4); PLATELET COUNT 192 K/uL (156-360); RBC DIS.WIDTH-CV 15.6 % (11.8-14.6); RBC DIS.WIDTH-SD 52.9 % (39-53); RED BLOOD COUNT 3.92 M/uL (3.80-5.20); WHITE BLOOD COUNT 9.5 K/uL (4.1-10.2)
[2016-09-12 07:06] LABS: ANION GAP 7 MEQ/L (2-14); CHLORIDE 101 MEQ/L (99-109); GFR ESTIMATE (CALCULATED) > 59 mL/min/; GLUCOSE 112 mg/dL (70-99); POTASSIUM 4.3 MEQ/L (3.7-5.4); SAMPLE HEMOLYSIS CHECK 0; SAMPLE ICTERIC CHECK 0; SAMPLE LIPEMIA CHECK 0; SODIUM 141 MEQ/L (136-147); UREA NITROGEN (BUN) 19 mg/dL (9-23)
[2016-09-13 03:12] LABS: BASE EXCESS 9.4 mEq/L (-3 to +3); BICARBONATE 36.3 mEq/L (22-26); METHEMOGLOBIN 0.9 % (0-1.5); PCO2 60 mm Hg (35-45); pH 7.39 (7.35-7.45)
[2016-09-13 03:13] LABS: COMMENTS - BLOOD GASES C+A+; DEVICE NRB; O2 FLOW 15 L/MIN; PO2 96 mm Hg (80-100); SITE RR; TOTAL RESP RATE 28 resp/min
[2016-09-13 03:33] VITALS: BP 145/82
[2016-09-13 07:11] LABS: ANION GAP 9 MEQ/L (2-14); CHLORIDE 98 MEQ/L (99-109); GFR ESTIMATE (CALCULATED) > 59 mL/min/; POTASSIUM 4.6 MEQ/L (3.7-5.4); SAMPLE HEMOLYSIS CHECK 0; SAMPLE ICTERIC CHECK 0; SAMPLE LIPEMIA CHECK 0; SODIUM 140 MEQ/L (136-147); UREA NITROGEN (BUN) 18 mg/dL (9-23)
[2016-09-13 07:31] LABS: GLUCOSE 174 mg/dL (70-99)
[2016-09-13 08:58] VITALS: BP 121/62
[2016-09-13 11:34] VITALS: BP 130/63
[2016-09-13 15:41] VITALS: BP 139/76
[2016-09-13 19:41] VITALS: BP 129/74
[2016-09-13 23:28] VITALS: BP 106/55
[2016-09-14] VITALS (7 sets, daily range): BP systolic 100–137; BP diastolic 47–77
[2016-09-14 06:48] LABS: HEMATOCRIT 34.8 % (36.0-46.0); MCHC 30.5 G/DL (30.0-36.0); MCV 91.8 FL (83-99); MEAN PLAT.VOLUME 11.7 uM^3 (9.5-12.4); PLATELET COUNT 216 K/uL (156-360); RBC DIS.WIDTH-CV 15.3 % (11.8-14.6); RBC DIS.WIDTH-SD 50.9 % (39-53); RED BLOOD COUNT 3.79 M/uL (3.80-5.20); WHITE BLOOD COUNT 11.2 K/uL (4.1-10.2)
[2016-09-14 07:12] LABS: ANION GAP 5 MEQ/L (2-14); CHLORIDE 98 MEQ/L (99-109); GFR ESTIMATE (CALCULATED) > 59 mL/min/; GLUCOSE 125 mg/dL (70-99); POTASSIUM 4.2 MEQ/L (3.7-5.4); SAMPLE HEMOLYSIS CHECK 0; SAMPLE ICTERIC CHECK 0; SAMPLE LIPEMIA CHECK 0; SODIUM 137 MEQ/L (136-147); UREA NITROGEN (BUN) 21 mg/dL (9-23)
[2016-09-15 03:44] VITALS: BP 120/65
[2016-09-15 06:00] LABS: ANION GAP 7 MEQ/L (2-14); CHLORIDE 100 MEQ/L (99-109); GFR ESTIMATE (CALCULATED) > 59 mL/min/; POTASSIUM 3.6 MEQ/L (3.7-5.4); SAMPLE HEMOLYSIS CHECK 0; SAMPLE ICTERIC CHECK 0; SAMPLE LIPEMIA CHECK 0; SODIUM 141 MEQ/L (136-147); UREA NITROGEN (BUN) 20 mg/dL (9-23)
[2016-09-15 06:26] LABS: GLUCOSE 92 mg/dL (70-99)
[2016-09-15 07:46] VITALS: BP 131/67
[2016-09-15 11:04] VITALS: BP 117/66
[2016-09-15 15:11] VITALS: BP 130/69
[2016-09-15 20:00] VITALS: BP 128/63
[2016-09-16] VITALS (7 sets, daily range): BP systolic 113–130; BP diastolic 53–71
[2016-09-16 07:07] LABS: EOSINOPHIL (%) 5.6 % (0-5); EOSINOPHIL COUNT 0.6 K/uL (0-0.3); HEMATOCRIT 36.6 % (36.0-46.0); IMMATURE GRANULOCYTE (%) 0.4 % (0.0-0.7); INSTRUMENT ABS NEUTROPHIL CT 6.6 K/uL; MCH 27.6 PG (29.0-34.0); MCHC 30.1 G/DL (30.0-36.0); MCV 91.7 FL (83-99); MONOCYTE (%) 9.5 % (3-12); NEUTROPHIL (%) 65.2 % (45-76); NEUTROPHIL COUNT 6.6 K/uL (1.8-6.4); PLATELET COUNT 202 K/uL (156-360); RBC DIS.WIDTH-CV 15.4 % (11.8-14.6); RBC DIS.WIDTH-SD 52.2 % (39-53); RED BLOOD COUNT 3.99 M/uL (3.80-5.20); WHITE BLOOD COUNT 10.2 K/uL (4.1-10.2)
[2016-09-16 07:43] LABS: ANION GAP 8 MEQ/L (2-14); CHLORIDE 100 MEQ/L (99-109); GFR ESTIMATE (CALCULATED) > 59 mL/min/; POTASSIUM 3.8 MEQ/L (3.7-5.4); SAMPLE HEMOLYSIS CHECK 0; SAMPLE ICTERIC CHECK 0; SAMPLE LIPEMIA CHECK 0; SODIUM 141 MEQ/L (136-147); UREA NITROGEN (BUN) 21 mg/dL (9-23)
[2016-09-16 07:51] LABS: GLUCOSE 118 mg/dL (70-99)
[2016-09-17 04:15] VITALS: BP 122/65
[2016-09-17 07:46] VITALS: BP 153/66
[2016-09-17 11:50] VITALS: BP 104/54
[2016-09-17 15:47] VITALS: BP 130/88
[2016-09-17 20:15] VITALS: BP 117/54
[2016-09-17 23:55] VITALS: BP 115/60
[2016-09-18 04:05] VITALS: BP 122/62
[2016-09-18 07:57] VITALS: BP 124/87
[2016-09-18 11:37] VITALS: BP 118/67
[2016-09-18] MEDS ORDERED: ADVAIR HFA120 INHALA IH (11:49)
[2016-09-18] MEDS ORDERED: SPIRIVA RESPIMAT4 GM IH (11:50)
[2016-09-18] MEDS ORDERED: FUROSEMIDE40 MG PO (11:50)
[2016-09-18] MEDS ORDERED: DUONEB 2.5-0.5 M3 ML AEROSOL (11:51)
[2016-09-18 16:11] VITALS: BP 116/57
== END 2016-09-18 19:15 | disposition home health service (06) | DRG 189 ==
LOC: EME 13:54 → 5SOUTH 16:30 → EDOF 16:30 → ENRESERV 16:32 → 5SOUTH 19:59
PROVIDERS: Emergency Medicine; Hospitalist; Internal Medicine; Student in an Organized Health Care Education/Training Program
DX: J96.21 Acute and chronic respiratory failure with hypoxia (principal); I50.33 Acute on chronic diastolic (congestive) heart failure; I95.9 Hypotension, unspecified; E11.51 Type 2 diabetes mellitus with diabetic peripheral angiopathy without gangrene; E11.622 Type 2 diabetes mellitus with other skin ulcer; I27.2 Other secondary pulmonary hypertension; E66.2 Morbid (severe) obesity with alveolar hypoventilation; I11.0 Hypertensive heart disease with heart failure; J96.22 Acute and chronic respiratory failure with hypercapnia; I48.0 Paroxysmal atrial fibrillation; G47.33 Obstructive sleep apnea (adult) (pediatric); Z68.43 Body mass index [BMI] 50.0-59.9, adult; J98.11 Atelectasis; F43.22 Adjustment disorder with anxiety; Z79.84 Long term (current) use of oral hypoglycemic drugs; L03.115 Cellulitis of right lower limb; L03.116 Cellulitis of left lower limb; Z79.01 Long term (current) use of anticoagulants; Z86.718 Personal history of other venous thrombosis and embolism; Z86.711 Personal history of pulmonary embolism; I89.0 Lymphedema, not elsewhere classified; E78.5 Hyperlipidemia, unspecified; Z85.038 Personal history of other malignant neoplasm of large intestine; Z87.01 Personal history of pneumonia (recurrent); Z79.899 Other long term (current) drug therapy; Z82.3 Family history of stroke; Z83.3 Family history of diabetes mellitus; L97.929 Non-pressure chronic ulcer of unspecified part of left lower leg with unspecified severity; G89.29 Other chronic pain; Z98.84 Bariatric surgery status; Z99.81 Dependence on supplemental oxygen; Z87.891 Personal history of nicotine dependence; I87.8 Other specified disorders of veins; K21.9 Gastro-esophageal reflux disease without esophagitis; Z87.442 Personal history of urinary calculi; M19.90 Unspecified osteoarthritis, unspecified site; M54.5 Low back pain; R10.9 Unspecified abdominal pain; J44.9 Chronic obstructive pulmonary disease, unspecified
CPT/HCPCS: 36415; 36600; 71010; 71020; 71260; 74177; 80048; 80053; 80202; 82378; 82803; 82948; 83735; 83880; 84145 90; 84443; 84484; 85025; 85025 91; 85027; 87040; 87449; 93005; 94010; 94640; 94640 76; 94660; 94667; 94668; 94760; 94799; 97530 GO; 99202; 99281; 99285; A6212; C1753; J1170; J1815; J1940; J2543; J2930; J3370; J7050

== ENCOUNTER 2016-10-07 11:59 | Inpatient (IN) | payer BC, OTHER ==
[~2016-10-07] VITALS: Ht 167.6 cm; Wt 159.9 kg
[~2016-10-07 11:59] MED LIST changes: +ADVAIR HFA120 INHALA IH; +COL-RITE100 M1 PO; +DUONEB 2.5-0.5 M3 ML AEROSOL; +MULTAQ400 MG PO; +OXYCONTIN15 MG PO; +SPIRIVA RESPIMAT4 GM IH; +VALIUM10 MG PO
[2016-10-09 13:40] VITALS: BP 103/49
[2016-10-09] MEDS ORDERED: CARDIZEM CD,CA120 MG PO (13:55)
[2016-10-09] MEDS ORDERED: ZINC OXIDE56.7 GM TP (13:58)
[2016-10-09] MEDS ORDERED: NIZORAL 2% CREA15 GM TP (13:59)
[2016-10-10 00:13] VITALS: BP 112/57
[2016-10-10 04:55] VITALS: BP 140/62
[2016-10-10 07:06] LABS: HEMATOCRIT 36.1 % (36.0-46.0); MCH 26.3 PG (29.0-34.0); MCHC 29.4 G/DL (30.0-36.0); MCV 89.6 FL (83-99); MEAN PLAT.VOLUME 11.6 uM^3 (9.5-12.4); PLATELET COUNT 195 K/uL (156-360); RBC DIS.WIDTH-SD 49.9 % (39-53); RED BLOOD COUNT 4.03 M/uL (3.80-5.20); WHITE BLOOD COUNT 7.9 K/uL (4.1-10.2)
[2016-10-10 07:36] LABS: ALKALINE PHOSPHATASE 85 IU/L (3-129); ANION GAP 8 MEQ/L (2-14); CHLORIDE 101 MEQ/L (99-109); GFR ESTIMATE (CALCULATED) > 59 mL/min/; GLUCOSE 117 mg/dL (70-99); SAMPLE HEMOLYSIS CHECK 0; SAMPLE ICTERIC CHECK 0; SAMPLE LIPEMIA CHECK 0; SODIUM 141 MEQ/L (136-147); TOTAL BILIRUBIN 0.9 MG/DL (0.0-1.0); UREA NITROGEN (BUN) 17 mg/dL (9-23)
[2016-10-10 15:10] VITALS: BP 113/49
[2016-10-10 15:57] VITALS: BP 113/49
[2016-10-10 20:23] VITALS: BP 108/53
[2016-10-11 01:30] VITALS: BP 142/74
[2016-10-11 02:11] LABS: HEMATOCRIT 39.2 % (36.0-46.0); MCH 26.8 PG (29.0-34.0); MCHC 30.4 G/DL (30.0-36.0); MCV 88.3 FL (83-99); MEAN PLAT.VOLUME 11.8 uM^3 (9.5-12.4); PLATELET COUNT 222 K/uL (156-360); RBC DIS.WIDTH-SD 48.8 % (39-53); RED BLOOD COUNT 4.44 M/uL (3.80-5.20); WHITE BLOOD COUNT 12.2 K/uL (4.1-10.2)
[2016-10-11 02:23] LABS: CHLORIDE 101 mEq/L (99-109); POTASSIUM 3.7 mEq/L (3.7-5.4); SODIUM 141 mEq/L (136-147)
[2016-10-11 02:24] LABS: MAGNESIUM 2.1 mg/dL (1.3-2.7)
[2016-10-11 02:25] LABS: GLUCOSE 146 mg/dL (70-99)
[2016-10-11 02:27] LABS: ANION GAP 12 MEQ/L (2-14)
[2016-10-11 02:29] LABS: GFR ESTIMATE (CALCULATED) > 59 mL/min/
[2016-10-11 02:30] LABS: UREA NITROGEN (BUN) 14 mg/dL (9-23)
[2016-10-11 02:32] LABS: TROP-I INTERPRETATION NEGATIVE; TROPONIN-I < 0.01 ng/mL (0.0-0.30)
[2016-10-11 03:03] LABS: IRON 33 MCG/DL (35-150)
[2016-10-11 03:12] VITALS: BP 98/53
== END 2016-10-11 03:40 | DRG 555 ==
LOC: 3WEST 11:59
PROVIDERS: Family Medicine; Hospitalist; Physical Medicine & Rehabilitation Pain Medicine
PROC: F07M0ZZ Range of Motion and Joint Mobility Treatment of Musculoskeletal System - Whole Body (ICD-10-PCS; principal; 2016-10-09)
DX: M62.81 Muscle weakness (generalized) (principal); J18.9 Pneumonia, unspecified organism; J96.11 Chronic respiratory failure with hypoxia; Z68.43 Body mass index [BMI] 50.0-59.9, adult; J90 Pleural effusion, not elsewhere classified; E66.2 Morbid (severe) obesity with alveolar hypoventilation; L97.821 Non-pressure chronic ulcer of other part of left lower leg limited to breakdown of skin; J98.11 Atelectasis; I50.32 Chronic diastolic (congestive) heart failure; R26.2 Difficulty in walking, not elsewhere classified; M19.90 Unspecified osteoarthritis, unspecified site; D64.9 Anemia, unspecified; E11.622 Type 2 diabetes mellitus with other skin ulcer; E78.5 Hyperlipidemia, unspecified; E87.6 Hypokalemia; G89.29 Other chronic pain; B36.9 Superficial mycosis, unspecified; E77.8 Other disorders of glycoprotein metabolism; I11.0 Hypertensive heart disease with heart failure; I25.10 Atherosclerotic heart disease of native coronary artery without angina pectoris; I48.0 Paroxysmal atrial fibrillation; I87.8 Other specified disorders of veins; M54.5 Low back pain; M51.36 Other intervertebral disc degeneration, lumbar region; N76.6 Ulceration of vulva; I89.0 Lymphedema, not elsewhere classified; Z91.19 Patient's noncompliance with other medical treatment and regimen; I48.2 Chronic atrial fibrillation; Z74.09 Other reduced mobility; Z86.711 Personal history of pulmonary embolism; Z86.718 Personal history of other venous thrombosis and embolism; Z87.891 Personal history of nicotine dependence; Z98.84 Bariatric surgery status; Z88.5 Allergy status to narcotic agent; Z85.038 Personal history of other malignant neoplasm of large intestine; Z79.01 Long term (current) use of anticoagulants; Z83.3 Family history of diabetes mellitus; Z80.3 Family history of malignant neoplasm of breast; Z80.0 Family history of malignant neoplasm of digestive organs; Z82.3 Family history of stroke
CPT/HCPCS: 71010; 80053; 80069; 82306; 82728; 83540; 83735; 84484; 85027; 93005; 94640 76; 94799; 97110 GO; 97530 GP

== ENCOUNTER 2016-10-11 03:18 | Observation (INO) | payer BC, OTHER ==
[~2016-10-11] VITALS: Ht 167.6 cm; Wt 160.6 kg
[2016-10-11] VITALS (7 sets, daily range): BP systolic 102–133; BP diastolic 50–73
[~2016-10-11 03:18] MED LIST changes: +CARDIZEM CD,CA120 MG PO; +NIZORAL 2% CREA15 GM TP; +ZINC OXIDE56.7 GM TP
[2016-10-11 13:17] LABS: TROP-I INTERPRETATION NEGATIVE; TROPONIN-I < 0.01 ng/mL (0.0-0.30)
[2016-10-11 18:54] LABS: TROP-I INTERPRETATION NEGATIVE; TROPONIN-I 0.01 ng/mL (0.0-0.30)
[2016-10-11 22:42] LABS: TROP-I INTERPRETATION NEGATIVE; TROPONIN-I < 0.01 ng/mL (0.0-0.30)
[2016-10-12 03:01] VITALS: BP 120/93
[2016-10-12 07:00] VITALS: BP 116/58
[2016-10-12 11:51] VITALS: BP 110/54
[2016-10-12 15:45] VITALS: BP 131/72
[2016-10-12 19:10] VITALS: BP 124/60
[2016-10-12 23:18] VITALS: BP 135/58
[2016-10-13] VITALS (7 sets, daily range): BP systolic 96–131; BP diastolic 54–68
[2016-10-13 00:18] LABS: C DIFF TOXIN NEGATIVE (NEGATIVE)
[2016-10-13 00:19] LABS: PROBE CHECK PASS; SPECIMEN PROCESSING CONTROL PASS
[2016-10-13 07:56] LABS: MCH 26.2 PG (29.0-34.0); MCHC 28.9 G/DL (30.0-36.0); MCV 90.5 FL (83-99); RBC DIS.WIDTH-CV 15.4 % (11.8-14.6); RED BLOOD COUNT 4.09 M/uL (3.80-5.20); WHITE BLOOD COUNT 11.6 K/uL (4.1-10.2)
[2016-10-13 08:21] LABS: MEAN PLAT.VOLUME 11.5 uM^3 (9.5-12.4); PLAT.SUFFICIENCY ADEQUATE; PLATELET COUNT 203 K/uL (156-360)
[2016-10-13 08:22] LABS: ANION GAP 6 MEQ/L (2-14); CHLORIDE 104 MEQ/L (99-109); GFR ESTIMATE (CALCULATED) > 59 mL/min/; GLUCOSE 114 mg/dL (70-99); POTASSIUM 3.8 MEQ/L (3.7-5.4); SAMPLE HEMOLYSIS CHECK 0; SAMPLE ICTERIC CHECK 0; SAMPLE LIPEMIA CHECK 0; SODIUM 141 MEQ/L (136-147); UREA NITROGEN (BUN) 16 mg/dL (9-23)
[2016-10-13 08:23] LABS: ALKALINE PHOSPHATASE 108 IU/L (3-129); TOTAL BILIRUBIN 1.1 MG/DL (0.0-1.0)
[2016-10-14 04:24] VITALS: BP 134/60
[2016-10-14 07:47] VITALS: BP 123/58
[2016-10-14 11:04] VITALS: BP 132/60
[2016-10-14] MEDS ORDERED: CARDIZEM CD,CA240 MG PO (12:37)
[2016-10-14] MEDS ORDERED: DIGOXIN125 MCG PO (12:37)
== END 2016-10-14 14:26 ==
LOC: 4EAST 03:18 → ENRESERV 03:19 → 4EAST 03:24 → 2SOUTH 03:24 → 4EAST 03:24
PROVIDERS: Hospitalist
DX: I48.0 Paroxysmal atrial fibrillation (principal); E66.2 Morbid (severe) obesity with alveolar hypoventilation; Z68.43 Body mass index [BMI] 50.0-59.9, adult; E11.9 Type 2 diabetes mellitus without complications; R06.02 Shortness of breath; I11.0 Hypertensive heart disease with heart failure; I50.32 Chronic diastolic (congestive) heart failure; J44.9 Chronic obstructive pulmonary disease, unspecified; Z86.19 Personal history of other infectious and parasitic diseases; Z86.11 Personal history of tuberculosis; G89.29 Other chronic pain; M54.5 Low back pain; Z98.84 Bariatric surgery status; Z96.659 Presence of unspecified artificial knee joint; Z90.710 Acquired absence of both cervix and uterus; Z90.49 Acquired absence of other specified parts of digestive tract; Z82.49 Family history of ischemic heart disease and other diseases of the circulatory system; Z80.0 Family history of malignant neoplasm of digestive organs; Z80.3 Family history of malignant neoplasm of breast
CPT/HCPCS: 71010; 80053; 84484; 85027; 87493; 93005; 94640; 94640 76; 94799; G0378; J1160; J2765

== ENCOUNTER 2016-10-14 13:37 | Inpatient (IN) | payer BC, OTHER ==
[~2016-10-14] VITALS: Ht 167.6 cm; Wt 159.4 kg
[~2016-10-14 13:37] MED LIST changes: +CARDIZEM CD,CA240 MG PO; +DIGOXIN125 MCG PO
[2016-10-14 14:45] VITALS: BP 111/52
[2016-10-14 23:15] VITALS: BP 115/58
[2016-10-15 05:58] LABS: MCH 27.3 PG (29.0-34.0); MCV 91.1 FL (83-99); MEAN PLAT.VOLUME 11.4 uM^3 (9.5-12.4); PLATELET COUNT 203 K/uL (156-360); RBC DIS.WIDTH-CV 15.2 % (11.8-14.6); RBC DIS.WIDTH-SD 50.4 % (39-53); RED BLOOD COUNT 4.06 M/uL (3.80-5.20); WHITE BLOOD COUNT 8.9 K/uL (4.1-10.2)
[2016-10-15 06:15] VITALS: BP 136/63
[2016-10-15 06:40] LABS: ALKALINE PHOSPHATASE 101 IU/L (3-129); ANION GAP 6 MEQ/L (2-14); CHLORIDE 104 MEQ/L (99-109); GFR ESTIMATE (CALCULATED) > 59 mL/min/; GLUCOSE 105 mg/dL (70-99); POTASSIUM 3.7 MEQ/L (3.7-5.4); SAMPLE HEMOLYSIS CHECK 0; SAMPLE ICTERIC CHECK 0; SAMPLE LIPEMIA CHECK 0; SODIUM 141 MEQ/L (136-147); UREA NITROGEN (BUN) 13 mg/dL (9-23)
[2016-10-15 06:44] LABS: TOTAL BILIRUBIN 0.7 MG/DL (0.0-1.0)
[2016-10-15 15:05] VITALS: BP 118/59
[2016-10-16 05:07] VITALS: BP 115/53
[2016-10-16 15:45] VITALS: BP 130/62
[2016-10-17 04:55] VITALS: BP 127/59
[2016-10-17 15:21] VITALS: BP 125/65
[2016-10-18 04:59] VITALS: BP 138/63
[2016-10-18 15:16] VITALS: BP 117/58
[2016-10-19 05:43] VITALS: BP 132/64
[2016-10-19 15:48] VITALS: BP 113/53
[2016-10-20 05:00] VITALS: BP 117/56
[2016-10-20 05:46] LABS: MCH 26.9 PG (29.0-34.0); MCV 89.8 FL (83-99); MEAN PLAT.VOLUME 11.5 uM^3 (9.5-12.4); PLATELET COUNT 220 K/uL (156-360); RBC DIS.WIDTH-CV 15.3 % (11.8-14.6); RBC DIS.WIDTH-SD 50.3 % (39-53); RED BLOOD COUNT 4.12 M/uL (3.80-5.20); WHITE BLOOD COUNT 8.3 K/uL (4.1-10.2)
[2016-10-20 06:19] LABS: ALKALINE PHOSPHATASE 119 IU/L (3-129); ANION GAP 9 MEQ/L (2-14); CHLORIDE 100 MEQ/L (99-109); GFR ESTIMATE (CALCULATED) > 59 mL/min/; GLUCOSE 117 mg/dL (70-99); POTASSIUM 3.5 MEQ/L (3.7-5.4); SAMPLE HEMOLYSIS CHECK 0; SAMPLE ICTERIC CHECK 0; SAMPLE LIPEMIA CHECK 0; SODIUM 143 MEQ/L (136-147); TOTAL BILIRUBIN 0.7 MG/DL (0.0-1.0); UREA NITROGEN (BUN) 12 mg/dL (9-23)
[2016-10-20 15:28] VITALS: BP 125/58
[2016-10-21 07:01] VITALS: BP 127/61
[2016-10-21 15:18] VITALS: BP 124/62
[2016-10-22 06:10] VITALS: BP 118/56
[2016-10-22 08:41] VITALS: BP 132/55
[2016-10-22 16:07] VITALS: BP 115/55
[2016-10-23 05:31] VITALS: BP 117/55
[2016-10-23 15:52] VITALS: BP 127/60
[2016-10-24 05:00] VITALS: BP 120/57
[2016-10-24 15:36] VITALS: BP 114/55
[2016-10-25 05:12] VITALS: BP 136/63
[2016-10-25 06:24] LABS: ANION GAP 6 MEQ/L (2-14); CHLORIDE 102 MEQ/L (99-109); GFR ESTIMATE (CALCULATED) > 59 mL/min/; GLUCOSE 127 mg/dL (70-99); POTASSIUM 3.6 MEQ/L (3.7-5.4); SAMPLE HEMOLYSIS CHECK 0; SAMPLE ICTERIC CHECK 0; SAMPLE LIPEMIA CHECK 0; SODIUM 141 MEQ/L (136-147); UREA NITROGEN (BUN) 14 mg/dL (9-23)
[2016-10-25 15:32] VITALS: BP 117/56
[2016-10-25 20:30] VITALS: BP 139/65
[2016-10-26 05:55] VITALS: BP 137/60
[2016-10-26 15:37] VITALS: BP 136/59
[2016-10-27 05:38] VITALS: BP 116/54
[2016-10-27] MEDS ORDERED: ZINC OXIDE56.7 GM TP (10:24)
[2016-10-27] MEDS ORDERED: ADVAIR HFA120 INHALA IH (10:24)
[2016-10-27] MEDS ORDERED: SPIRIVA RESPIMAT4 GM IH (10:24)
[2016-10-27] MEDS ORDERED: NIZORAL 2% CREA15 GM TP (10:24)
[2016-10-27] MEDS ORDERED: LOPRESSOR50 MG PO (10:24)
[2016-10-27] MEDS ORDERED: PRADAXA150 MG PO (10:24)
[2016-10-27] MEDS ORDERED: DIGOXIN125 MCG PO (10:24)
[2016-10-27] MEDS ORDERED: MULTAQ400 MG PO (10:24)
[2016-10-27] MEDS ORDERED: COL-RITE100 M1 PO (10:24)
[2016-10-27] MEDS ORDERED: CARDIZEM CD,CA240 MG PO (10:24)
[2016-10-27] MEDS ORDERED: FUROSEMIDE40 MG PO (10:24)
[2016-10-27] MEDS ORDERED: K-DUR20 MEQ PO (10:24)
[2016-10-27] MEDS ORDERED: VALIUM10 MG PO (10:24)
== END 2016-10-27 11:16 | disposition home health service (06) | DRG 945 ==
LOC: 3WEST 13:37 → ENPENDDIS 10-27 → 3WEST 10-27 11:16
PROVIDERS: Physical Medicine & Rehabilitation Pain Medicine
PROC: F07M0ZZ Range of Motion and Joint Mobility Treatment of Musculoskeletal System - Whole Body (ICD-10-PCS; principal; 2016-10-14)
DX: R53.1 Weakness (principal); R26.9 Unspecified abnormalities of gait and mobility; J96.11 Chronic respiratory failure with hypoxia; I50.32 Chronic diastolic (congestive) heart failure; I48.0 Paroxysmal atrial fibrillation; E77.8 Other disorders of glycoprotein metabolism; E83.51 Hypocalcemia; I11.0 Hypertensive heart disease with heart failure; E11.622 Type 2 diabetes mellitus with other skin ulcer; L97.821 Non-pressure chronic ulcer of other part of left lower leg limited to breakdown of skin; E88.09 Other disorders of plasma-protein metabolism, not elsewhere classified; E66.2 Morbid (severe) obesity with alveolar hypoventilation; Z68.43 Body mass index [BMI] 50.0-59.9, adult; Z99.81 Dependence on supplemental oxygen; E87.6 Hypokalemia; I87.8 Other specified disorders of veins; E78.5 Hyperlipidemia, unspecified; I25.10 Atherosclerotic heart disease of native coronary artery without angina pectoris; E55.9 Vitamin D deficiency, unspecified; G89.29 Other chronic pain; M54.5 Low back pain; I89.0 Lymphedema, not elsewhere classified; J44.9 Chronic obstructive pulmonary disease, unspecified; G47.30 Sleep apnea, unspecified; M19.90 Unspecified osteoarthritis, unspecified site; M51.9 Unspecified thoracic, thoracolumbar and lumbosacral intervertebral disc disorder; Z96.659 Presence of unspecified artificial knee joint; Z79.01 Long term (current) use of anticoagulants; Z85.038 Personal history of other malignant neoplasm of large intestine; Z86.711 Personal history of pulmonary embolism; Z86.718 Personal history of other venous thrombosis and embolism; Z87.891 Personal history of nicotine dependence; Z98.84 Bariatric surgery status
CPT/HCPCS: 71010; 80048; 80053; 80162; 85027; 93005; 94640; 94640 76; 94799; 97110 GO; 97530 GP; 99202

== ENCOUNTER 2017-01-07 15:17 | Inpatient (IN) | payer BC, OTHER ==
[~2017-01-07] VITALS: Ht 167.6 cm; Wt 197.6 kg
[~2017-01-07 15:17] MED LIST changes: +K-DUR20 MEQ PO
[2017-01-07 16:23] LABS: HEMATOCRIT 39.2 % (36.0-46.0); MCH 23.7 PG (29.0-34.0); MCHC 28.6 G/DL (30.0-36.0); MCV 83.1 FL (83-99); MEAN PLAT.VOLUME 11.1 uM^3 (9.5-12.4); PLATELET COUNT 265 K/uL (156-360); RBC DIS.WIDTH-CV 17.2 % (11.8-14.6); RBC DIS.WIDTH-SD 51.3 % (39-53); RED BLOOD COUNT 4.72 M/uL (3.80-5.20); WHITE BLOOD COUNT 12.3 K/uL (4.1-10.2)
[2017-01-07 16:29] LABS: INTER. NORMALIZED RATIO 3.8; PROTHROMBIN TIME 43.1 SEC (10.2-12.9)
[2017-01-07 16:37] LABS: CHLORIDE 104 mEq/L (99-109); POTASSIUM 3.6 mEq/L (3.7-5.4); SODIUM 140 mEq/L (136-147)
[2017-01-07 16:39] LABS: GLUCOSE 167 mg/dL (70-99)
[2017-01-07 16:40] LABS: ANION GAP 9 MEQ/L (2-14)
[2017-01-07 16:41] LABS: TOTAL BILIRUBIN 0.8 mg/dL (0.0-1.0)
[2017-01-07 16:43] LABS: ALKALINE PHOSPHATASE 109 IU/L (3-129); GFR ESTIMATE (CALCULATED) > 59 mL/min/
[2017-01-07 16:44] LABS: TROP-I INTERPRETATION NEGATIVE; TROPONIN-I < 0.01 ng/mL (0.0-0.30); UREA NITROGEN (BUN) 16 mg/dL (9-23)
[2017-01-07] MEDS ORDERED: COUMADIN5 MG PO (18:09)
[2017-01-07] MEDS ORDERED: COUMADIN2.5 MG PO (18:10)
[2017-01-07 18:24] LABS: ADD MIUA? YES; BILIRUBIN NEGATIVE; BLOOD NEGATIVE; COLOR YELLOW ((YELLOW)); GLUCOSE (STRIP) NEGATIVE; KETONES NEGATIVE; LEUKOCYTES NEGATIVE; NITRITE NEGATIVE; PROTEIN (STRIP) 30; SPECIFIC GRAVITY 1.029 (1.000-1.030)
[2017-01-07 18:27] LABS: BACTERIA NONE SEEN /HPF; CALCIUM OXALATE CRYSTALS 2+ /HPF; EPITHELIAL CELLS 1+ /HPF; MUCUS TRACE /LPF; RED BLOOD CELLS 0-5 /HPF (0-5); WHITE BLOOD CELLS 0-5 /HPF (0-5)
[2017-01-07 22:30] VITALS: BP 143/91
[2017-01-07 22:36] VITALS: BP 143/91
[2017-01-08 04:50] VITALS: BP 137/62
[2017-01-08 05:29] LABS: INTER. NORMALIZED RATIO 2.9; PROTHROMBIN TIME 33.1 SEC (10.2-12.9)
[2017-01-08 05:30] LABS: HEMATOCRIT 35.9 % (36.0-46.0); MCH 23.4 PG (29.0-34.0); MCHC 28.1 G/DL (30.0-36.0); MCV 83.1 FL (83-99); MEAN PLAT.VOLUME 11.1 uM^3 (9.5-12.4); PLATELET COUNT 258 K/uL (156-360); RBC DIS.WIDTH-CV 17.1 % (11.8-14.6); RBC DIS.WIDTH-SD 51.9 % (39-53); RED BLOOD COUNT 4.32 M/uL (3.80-5.20); WHITE BLOOD COUNT 13.4 K/uL (4.1-10.2)
[2017-01-08 05:55] LABS: ANION GAP 7 MEQ/L (2-14); CHLORIDE 105 MEQ/L (99-109); GFR ESTIMATE (CALCULATED) > 59 mL/min/; GLUCOSE 157 mg/dL (70-99); POTASSIUM 3.9 MEQ/L (3.7-5.4); SAMPLE HEMOLYSIS CHECK 0; SAMPLE ICTERIC CHECK 0; SAMPLE LIPEMIA CHECK 0; SODIUM 142 MEQ/L (136-147); UREA NITROGEN (BUN) 14 mg/dL (9-23)
[2017-01-08 07:29] VITALS: BP 121/56
[2017-01-08 11:05] VITALS: BP 112/57
[2017-01-08 15:52] VITALS: BP 152/68
[2017-01-08 17:10] VITALS: BP 136/64
[2017-01-08 19:35] VITALS: BP 122/80
[2017-01-09 03:44] VITALS: BP 139/65
[2017-01-09 08:00] VITALS: BP 134/63
[2017-01-09 16:13] VITALS: BP 138/63
[2017-01-09 20:07] VITALS: BP 158/71
[2017-01-09 23:43] LABS: PROTHROMBIN TIME 22.9 SEC (10.2-12.9)
[2017-01-09 23:46] VITALS: BP 176/78
[2017-01-10 03:55] VITALS: BP 139/65
[2017-01-10 06:15] LABS: EOSINOPHIL (%) 4.9 % (0-5); EOSINOPHIL COUNT 0.6 K/uL (0-0.3); HEMATOCRIT 37.2 % (36.0-46.0); IMMATURE GRANULOCYTE (%) 0.6 % (0.0-0.7); IMMATURE GRANULOCYTE COUNT 0.1 K/uL; INSTRUMENT ABS NEUTROPHIL CT 8.7 K/uL; LYMPHOCYTE COUNT 1.9 K/uL (1.0-2.8); MCHC 27.7 G/DL (30.0-36.0); MEAN PLAT.VOLUME 10.6 uM^3 (9.5-12.4); MONOCYTE (%) 9.8 % (3-12); MONOCYTE COUNT 1.2 K/uL (0-0.8); NEUTROPHIL (%) 69.3 % (45-76); NEUTROPHIL COUNT 8.7 K/uL (1.8-6.4); PLATELET COUNT 250 K/uL (156-360); RBC DIS.WIDTH-CV 17.3 % (11.8-14.6); RBC DIS.WIDTH-SD 51.8 % (39-53); RED BLOOD COUNT 4.48 M/uL (3.80-5.20); WHITE BLOOD COUNT 12.6 K/uL (4.1-10.2)
[2017-01-10 06:34] LABS: ANION GAP 8 MEQ/L (2-14); CHLORIDE 104 MEQ/L (99-109); GFR ESTIMATE (CALCULATED) > 59 mL/min/; GLUCOSE 156 mg/dL (70-99); POTASSIUM 3.9 MEQ/L (3.7-5.4); SAMPLE HEMOLYSIS CHECK 0; SAMPLE ICTERIC CHECK 0; SAMPLE LIPEMIA CHECK 0; SODIUM 142 MEQ/L (136-147); UREA NITROGEN (BUN) 10 mg/dL (9-23)
[2017-01-10 09:20] LABS: VANCOMYCIN, TROUGH 18.2 MCG/ML (10-20)
[2017-01-10 11:58] LABS: BICARBONATE 31.2 mEq/L (22-26); CARBOXY HGB 1.7 % (0-5); PO2 48 mm Hg (80-100); pH 7.43 (7.35-7.45)
[2017-01-10 11:59] LABS: PCO2 47 mm Hg (35-45)
[2017-01-10 12:01] LABS: SITE RR
[2017-01-10 12:02] LABS: COMMENTS - BLOOD GASES A+C+; DEVICE CANNULA; O2 FLOW 4 L/MIN
[2017-01-10 12:27] VITALS: BP 134/72
[2017-01-10 13:00] VITALS: BP 102/65
[2017-01-10 16:45] VITALS: BP 116/64
[2017-01-10 19:30] VITALS: BP 123/51
[2017-01-11 00:10] VITALS: BP 135/52
[2017-01-11 04:00] VITALS: BP 116/56
[2017-01-11 05:46] LABS: INTER. NORMALIZED RATIO 1.9; PROTHROMBIN TIME 21.3 SEC (10.2-12.9)
[2017-01-11 08:15] VITALS: BP 110/62
[2017-01-11 12:22] LABS: ANION GAP 8 MEQ/L (2-14); CHLORIDE 102 MEQ/L (99-109); GFR ESTIMATE (CALCULATED) > 59 mL/min/; GLUCOSE 179 mg/dL (70-99); POTASSIUM 3.8 MEQ/L (3.7-5.4); SAMPLE HEMOLYSIS CHECK 0; SAMPLE ICTERIC CHECK 0; SAMPLE LIPEMIA CHECK 0; SODIUM 142 MEQ/L (136-147); UREA NITROGEN (BUN) 10 mg/dL (9-23); VANCOMYCIN, TROUGH 19.3 MCG/ML (10-20)
[2017-01-11 19:15] VITALS: BP 132/66
[2017-01-11 23:42] VITALS: BP 134/66
[2017-01-12 04:10] VITALS: BP 127/59
[2017-01-12 06:14] LABS: PROTHROMBIN TIME 23.5 SEC (10.2-12.9)
[2017-01-12 09:00] VITALS: BP 120/56
[2017-01-12 12:00] VITALS: BP 125/63
[2017-01-12 16:00] VITALS: BP 112/54
[2017-01-12 19:30] VITALS: BP 124/87
[2017-01-13 00:20] VITALS: BP 132/68
[2017-01-13 04:38] VITALS: BP 134/60
[2017-01-13 09:41] VITALS: BP 121/69
[2017-01-13 11:53] VITALS: BP 124/50
[2017-01-13 14:37] LABS: INTER. NORMALIZED RATIO 2.1
[2017-01-13 14:59] LABS: ANION GAP 10 MEQ/L (2-14); CHLORIDE 100 MEQ/L (99-109); GFR ESTIMATE (CALCULATED) > 59 mL/min/; GLUCOSE 189 mg/dL (70-99); POTASSIUM 4.2 MEQ/L (3.7-5.4); SAMPLE HEMOLYSIS CHECK 0; SAMPLE ICTERIC CHECK 0; SAMPLE LIPEMIA CHECK 0; SODIUM 139 MEQ/L (136-147); UREA NITROGEN (BUN) 11 mg/dL (9-23)
[2017-01-13 16:30] VITALS: BP 126/64
[2017-01-13 19:45] VITALS: BP 130/84
[2017-01-14] VITALS (13 sets, daily range): BP systolic 113–164; BP diastolic 62–145
[2017-01-14 06:15] LABS: INTER. NORMALIZED RATIO 1.8; PROTHROMBIN TIME 20.8 SEC (10.2-12.9)
[2017-01-14 14:01] LABS: CARBOXY HGB 1.8 % (0-5); METHEMOGLOBIN 1.5 % (0-1.5); PCO2 79 mm Hg (35-45); PO2 49 mm Hg (80-100); pH 7.33 (7.35-7.45)
[2017-01-14 14:02] LABS: BICARBONATE 41.7 mEq/L (22-26)
[2017-01-14 14:43] LABS: HEMATOCRIT 38.1 % (36.0-46.0); MCH 23.6 PG (29.0-34.0); MCHC 27.6 G/DL (30.0-36.0); MCV 85.6 FL (83-99); RBC DIS.WIDTH-CV 17.8 % (11.8-14.6); RBC DIS.WIDTH-SD 55.4 % (39-53); RED BLOOD COUNT 4.45 M/uL (3.80-5.20); WHITE BLOOD COUNT 19.6 K/uL (4.1-10.2)
[2017-01-14 14:54] LABS: ANION GAP 2 MEQ/L (2-14); CHLORIDE 95 MEQ/L (99-109); GFR ESTIMATE (CALCULATED) > 59 mL/min/; GLUCOSE 272 mg/dL (70-99); POTASSIUM 4.1 MEQ/L (3.7-5.4); SAMPLE HEMOLYSIS CHECK 0; SAMPLE ICTERIC CHECK 0; SAMPLE LIPEMIA CHECK 0; SODIUM 137 MEQ/L (136-147); UREA NITROGEN (BUN) 13 mg/dL (9-23)
[2017-01-14 15:16] LABS: MEAN PLAT.VOLUME 11.3 uM^3 (9.5-12.4); PLAT.SUFFICIENCY ADEQUATE; PLATELET COUNT 267 K/uL (156-360)
[2017-01-14 22:24] LABS: ADD MIUA? YES; BILIRUBIN NEGATIVE; BLOOD NEGATIVE; COLOR YELLOW ((YELLOW)); GLUCOSE (STRIP) NEGATIVE; KETONES NEGATIVE; LEUKOCYTES NEGATIVE; NITRITE NEGATIVE; PROTEIN (STRIP) NEGATIVE; SPECIFIC GRAVITY 1.011 (1.000-1.030); UROBILINOGEN 0.2 MG/DL (0.2-1.0)
[2017-01-14 22:36] LABS: BACTERIA RARE /HPF; EPITHELIAL CELLS RARE /HPF; MUCUS TRACE /LPF; RED BLOOD CELLS 0-5 /HPF (0-5); UCUL ADDED? NO; WHITE BLOOD CELLS 0-5 /HPF (0-5); WHITE BLOOD CELLS CLUMP RARE /HPF (0-5)
[2017-01-14 23:05] LABS: BASE EXCESS 15.8 mEq/L (-3 to +3); BICARBONATE 43.6 mEq/L (22-26); CARBOXY HGB 1.5 % (0-5); METHEMOGLOBIN 1.3 % (0-1.5); PCO2 72 mm Hg (35-45); PO2 76 mm Hg (80-100); pH 7.39 (7.35-7.45)
[2017-01-14 23:06] LABS: COMMENTS - BLOOD GASES C+A+; DEVICE NIV; FI02 80 %; MODE SPONT; PEEP 5 CM/H20; PRES. SUPPORT 10 CM/H2O; SITE RR; TOTAL RESP RATE 27 resp/min
[2017-01-15] VITALS (19 sets, daily range): BP systolic 102–166; BP diastolic 59–114
[2017-01-15 03:22] LABS: POINT-OF-CARE METER ID UU13113803
[2017-01-15 04:57] LABS: EOSINOPHIL (%) 0.1 % (0-5); HEMATOCRIT 37.4 % (36.0-46.0); IMMATURE GRANULOCYTE (%) 0.4 % (0.0-0.7); IMMATURE GRANULOCYTE COUNT 0.1 K/uL; INSTRUMENT ABS NEUTROPHIL CT 10.9 K/uL; LYMPHOCYTE COUNT 1.7 K/uL (1.0-2.8); MCH 23.7 PG (29.0-34.0); MCHC 28.1 G/DL (30.0-36.0); MCV 84.4 FL (83-99); MEAN PLAT.VOLUME 11.4 uM^3 (9.5-12.4); MONOCYTE (%) 9.2 % (3-12); MONOCYTE COUNT 1.3 K/uL (0-0.8); NEUTROPHIL (%) 77.9 % (45-76); NEUTROPHIL COUNT 10.9 K/uL (1.8-6.4); PLATELET COUNT 225 K/uL (156-360); RBC DIS.WIDTH-CV 17.6 % (11.8-14.6); RBC DIS.WIDTH-SD 53.3 % (39-53); RED BLOOD COUNT 4.43 M/uL (3.80-5.20)
[2017-01-15 05:16] LABS: CHLORIDE 97 mEq/L (99-109); POTASSIUM 3.9 mEq/L (3.7-5.4)
[2017-01-15 05:19] LABS: ANION GAP 13 MEQ/L (2-14)
[2017-01-15 05:21] LABS: GFR ESTIMATE (CALCULATED) > 59 mL/min/
[2017-01-15 05:22] LABS: UREA NITROGEN (BUN) 14 mg/dL (9-23)
[2017-01-15 05:27] LABS: GLUCOSE 135 mg/dL (70-99); SODIUM 144 mEq/L (136-147)
[2017-01-15 06:12] LABS: POINT-OF-CARE METER ID UU13113803
[2017-01-15 06:15] LABS: INTER. NORMALIZED RATIO 1.9; PROTHROMBIN TIME 21.4 SEC (10.2-12.9)
[2017-01-15 07:51] LABS: Estimated Average Glucose 169 mg/dL (70-123); HEMOGLOBIN A1c (GLYCOHEMOGLOB) 7.5 % HGB (Below 5.7)
[2017-01-15 12:41] LABS: POINT-OF-CARE METER ID UU14314082
[2017-01-15 18:08] LABS: POINT-OF-CARE METER ID UU14162636
[2017-01-16] VITALS (19 sets, daily range): BP systolic 103–184; BP diastolic 53–109
[2017-01-16 00:50] LABS: POINT-OF-CARE METER ID UU14314082; POINT-OF-CARE USER ID PHATLC
[2017-01-16 05:27] LABS: INTER. NORMALIZED RATIO 1.9; PROTHROMBIN TIME 21.7 SEC (10.2-12.9)
[2017-01-16 05:28] LABS: POINT-OF-CARE METER ID UU14314082; POINT-OF-CARE USER ID PHATLC
[2017-01-16 11:30] LABS: POINT-OF-CARE METER ID UU14314082
[2017-01-16 14:02] LABS: BASE EXCESS 14.5 mEq/L (-3 to +3); BICARBONATE 41.2 mEq/L (22-26); CARBOXY HGB 1.5 % (0-5); METHEMOGLOBIN 1.4 % (0-1.5); pH 7.43 (7.35-7.45)
[2017-01-16 14:03] LABS: PCO2 62 mm Hg (35-45); PO2 50 mm Hg (80-100)
[2017-01-16 14:04] LABS: DEVICE NIV; SITE RR
[2017-01-16 14:05] LABS: COMMENTS - BLOOD GASES +A+C; FI02 100 %; MODE NIV; PEEP 10 CM/H20; PRES. SUPPORT 12 CM/H2O; TOTAL RESP RATE 25 resp/min
[2017-01-16 16:09] LABS: BASE EXCESS 13.9 mEq/L (-3 to +3); BICARBONATE 39.8 mEq/L (22-26); CARBOXY HGB 1.1 % (0-5); METHEMOGLOBIN 1.2 % (0-1.5); pH 7.46 (7.35-7.45)
[2017-01-16 16:10] LABS: COMMENTS - BLOOD GASES A+; DEVICE PB840; FI02 100 %; MECHANICAL RATE 12 resp/min; MODE AC; PCO2 56 mm Hg (35-45); PEEP 12 CM/H20; PO2 64 mm Hg (80-100); SITE RR +; TIDAL VOLUME 800 ML; TOTAL RESP RATE 12 resp/min
[2017-01-16 17:28] LABS: POINT-OF-CARE METER ID UU14314082
[2017-01-17] VITALS (14 sets, daily range): BP systolic 106–156; BP diastolic 45–69
[2017-01-17 00:35] LABS: POINT-OF-CARE METER ID UU14314083; POINT-OF-CARE USER ID PHATLC
[2017-01-17 04:44] LABS: EOSINOPHIL (%) 0 % (0-5); HEMATOCRIT 33.4 % (36.0-46.0); IMMATURE GRANULOCYTE (%) 0.5 % (0.0-0.7); IMMATURE GRANULOCYTE COUNT 0.1 K/uL; LYMPHOCYTE COUNT 1.5 K/uL (1.0-2.8); MCH 23.6 PG (29.0-34.0); MCHC 28.1 G/DL (30.0-36.0); MCV 83.9 FL (83-99); MONOCYTE COUNT 1.3 K/uL (0-0.8); NEUTROPHIL (%) 75.5 % (45-76); PLATELET COUNT 210 K/uL (156-360); RBC DIS.WIDTH-CV 17.7 % (11.8-14.6); RBC DIS.WIDTH-SD 53.5 % (39-53); RED BLOOD COUNT 3.98 M/uL (3.80-5.20)
[2017-01-17 04:59] LABS: CHLORIDE 101 mEq/L (99-109); POTASSIUM 3.5 mEq/L (3.7-5.4); SODIUM 145 mEq/L (136-147)
[2017-01-17 05:01] LABS: GLUCOSE 155 mg/dL (70-99)
[2017-01-17 05:03] LABS: ANION GAP 11 MEQ/L (2-14)
[2017-01-17 05:05] LABS: GFR ESTIMATE (CALCULATED) > 59 mL/min/
[2017-01-17 05:06] LABS: UREA NITROGEN (BUN) 20 mg/dL (9-23)
[2017-01-17 05:20] LABS: INTER. NORMALIZED RATIO 2.2; PROTHROMBIN TIME 24.6 SEC (10.2-12.9)
[2017-01-17 05:45] LABS: BASE EXCESS 13.9 mEq/L (-3 to +3); BICARBONATE 37.6 mEq/L (22-26); CARBOXY HGB 1.2 % (0-5); METHEMOGLOBIN 1.5 % (0-1.5); PO2 58 mm Hg (80-100); pH 7.55 (7.35-7.45)
[2017-01-17 05:49] LABS: PCO2 43 mm Hg (35-45)
[2017-01-17 05:50] LABS: COMMENTS - BLOOD GASES A+C+; DEVICE 840; FI02 80 %; MECHANICAL RATE 13 resp/min; MODE AC; SITE RR; TIDAL VOLUME 750 ML; TOTAL RESP RATE 13 resp/min
[2017-01-17 05:51] LABS: PEEP 12 CM/H20
[2017-01-17 06:01] LABS: POINT-OF-CARE METER ID UU14314083; POINT-OF-CARE USER ID PHATLC
[2017-01-17 07:40] LABS: MAGNESIUM 2.3 mg/dL (1.3-2.7)
[2017-01-17 12:33] LABS: POINT-OF-CARE METER ID UU14314082
[2017-01-17 18:27] LABS: POINT-OF-CARE METER ID UU14314082
[2017-01-18] VITALS (23 sets, daily range): BP systolic 114–139; BP diastolic 50–65
[2017-01-18 01:35] LABS: POINT-OF-CARE METER ID UU14174217; POINT-OF-CARE USER ID PHATLC
[2017-01-18 04:46] LABS: POINT-OF-CARE METER ID UU14208751; POINT-OF-CARE USER ID PHATLC
[2017-01-18 05:31] LABS: POINT-OF-CARE METER ID UU14208751; POINT-OF-CARE USER ID PHATLC
[2017-01-18 05:38] LABS: INTER. NORMALIZED RATIO 1.4; PROTHROMBIN TIME 16.3 SEC (10.2-12.9)
[2017-01-18 05:55] LABS: ANION GAP 7 MEQ/L (2-14); CHLORIDE 101 MEQ/L (99-109); GFR ESTIMATE (CALCULATED) 54 mL/min/; GLUCOSE 134 mg/dL (70-99); IRON 27 MCG/DL (35-150); POTASSIUM 3.4 MEQ/L (3.7-5.4); SAMPLE HEMOLYSIS CHECK 0; SAMPLE ICTERIC CHECK 0; SAMPLE LIPEMIA CHECK 0; SODIUM 144 MEQ/L (136-147); TRIGLYCERIDES 336 MG/DL (Normal: <150); UREA NITROGEN (BUN) 26 mg/dL (9-23)
[2017-01-18 07:40] LABS: EOSINOPHIL (%) 1.1 % (0-5); EOSINOPHIL COUNT 0.2 K/uL (0-0.3); HEMATOCRIT 33.5 % (36.0-46.0); IMMATURE GRANULOCYTE (%) 0.6 % (0.0-0.7); IMMATURE GRANULOCYTE COUNT 0.1 K/uL; LYMPHOCYTE COUNT 2.2 K/uL (1.0-2.8); MCH 23.9 PG (29.0-34.0); MCHC 28.4 G/DL (30.0-36.0); MCV 84.4 FL (83-99); MEAN PLAT.VOLUME 11.6 uM^3 (9.5-12.4); MONOCYTE (%) 10.4 % (3-12); MONOCYTE COUNT 1.7 K/uL (0-0.8); NRBC (%) 0.1 /100 WBC (0-0); PLATELET COUNT 213 K/uL (156-360); RBC DIS.WIDTH-CV 18.7 % (11.8-14.6); RBC DIS.WIDTH-SD 56.3 % (39-53); RED BLOOD COUNT 3.97 M/uL (3.80-5.20); WHITE BLOOD COUNT 16.2 K/uL (4.1-10.2)
[2017-01-18 07:42] LABS: DIGOXIN 0.7 ng/mL (0.8-2.0)
[2017-01-18 08:47] LABS: FERRITIN 43 NG/ML (10-291)
[2017-01-18 13:05] LABS: POINT-OF-CARE METER ID UU14208751; POINT-OF-CARE USER ID 612031313
[2017-01-18 17:46] LABS: POINT-OF-CARE METER ID UU14174217; POINT-OF-CARE USER ID 612031313
[2017-01-18 23:59] LABS: POINT-OF-CARE METER ID UU14162636
[2017-01-19] VITALS (23 sets, daily range): BP systolic 97–148; BP diastolic 46–76
[2017-01-19 04:40] LABS: INTER. NORMALIZED RATIO 1.6; PROTHROMBIN TIME 18.5 SEC (10.2-12.9)
[2017-01-19 04:41] LABS: EOSINOPHIL (%) 2.5 % (0-5); EOSINOPHIL COUNT 0.5 K/uL (0-0.3); HEMATOCRIT 34.5 % (36.0-46.0); IMMATURE GRANULOCYTE (%) 0.7 % (0.0-0.7); IMMATURE GRANULOCYTE COUNT 0.1 K/uL; INSTRUMENT ABS NEUTROPHIL CT 15.7 K/uL; LYMPHOCYTE COUNT 1.7 K/uL (1.0-2.8); MCH 23.4 PG (29.0-34.0); MCHC 27.8 G/DL (30.0-36.0); MCV 83.9 FL (83-99); MEAN PLAT.VOLUME 11.9 uM^3 (9.5-12.4); MONOCYTE (%) 8.9 % (3-12); MONOCYTE COUNT 1.8 K/uL (0-0.8); NEUTROPHIL (%) 79.4 % (45-76); NEUTROPHIL COUNT 15.7 K/uL (1.8-6.4); NRBC (%) 0.2 /100 WBC (0-0); PLATELET COUNT 209 K/uL (156-360); RBC DIS.WIDTH-CV 18.6 % (11.8-14.6); RBC DIS.WIDTH-SD 55.3 % (39-53); RED BLOOD COUNT 4.11 M/uL (3.80-5.20); WHITE BLOOD COUNT 19.7 K/uL (4.1-10.2)
[2017-01-19 04:46] LABS: CHLORIDE 102 mEq/L (99-109); POTASSIUM 3.6 mEq/L (3.7-5.4); SODIUM 143 mEq/L (136-147)
[2017-01-19 04:47] LABS: MAGNESIUM 2.4 mg/dL (1.3-2.7)
[2017-01-19 04:48] LABS: GLUCOSE 172 mg/dL (70-99)
[2017-01-19 04:50] LABS: ANION GAP 9 MEQ/L (2-14)
[2017-01-19 04:52] LABS: GFR ESTIMATE (CALCULATED) > 59 mL/min/
[2017-01-19 04:53] LABS: UREA NITROGEN (BUN) 25 mg/dL (9-23)
[2017-01-19 05:08] LABS: POINT-OF-CARE METER ID UU14162636
[2017-01-19 05:30] LABS: BICARBONATE 36.8 mEq/L (22-26); CARBOXY HGB 1.6 % (0-5); COMMENTS - BLOOD GASES C+; DEVICE VENT; FI02 90 %; MECHANICAL RATE 10 resp/min; METHEMOGLOBIN 1.2 % (0-1.5); MODE AC; PCO2 43 mm Hg (35-45); PO2 56 mm Hg (80-100); SITE RR; pH 7.54 (7.35-7.45)
[2017-01-19 05:31] LABS: PEEP 12 CM/H20; TIDAL VOLUME 850 ML; TOTAL RESP RATE 16 resp/min
[2017-01-19 11:35] LABS: POINT-OF-CARE METER ID UU14174217; POINT-OF-CARE USER ID 612031313
[2017-01-19 18:40] LABS: POINT-OF-CARE METER ID UU14162636; POINT-OF-CARE USER ID 612031313
[2017-01-20] VITALS (23 sets, daily range): BP systolic 106–161; BP diastolic 48–83
[2017-01-20 00:27] LABS: POINT-OF-CARE METER ID UU14314082
[2017-01-20 04:49] LABS: INTER. NORMALIZED RATIO 1.7; PROTHROMBIN TIME 19.2 SEC (10.2-12.9)
[2017-01-20 05:03] LABS: GFR ESTIMATE (CALCULATED) > 59 mL/min/
[2017-01-20 05:29] LABS: POINT-OF-CARE METER ID UU14162636
[2017-01-20 07:45] LABS: HEMATOCRIT 34.1 % (36.0-46.0); MCH 23.4 PG (29.0-34.0); MCHC 27.6 G/DL (30.0-36.0); MCV 84.8 FL (83-99); MEAN PLAT.VOLUME 12.5 uM^3 (9.5-12.4); NRBC (%) 0.1 /100 WBC (0-0); PLATELET COUNT 198 K/uL (156-360); RBC DIS.WIDTH-CV 18.5 % (11.8-14.6); RBC DIS.WIDTH-SD 56.7 % (39-53); RED BLOOD COUNT 4.02 M/uL (3.80-5.20); WHITE BLOOD COUNT 19.8 K/uL (4.1-10.2)
[2017-01-20 07:51] LABS: MAGNESIUM 2.7 mg/dl (1.3-2.7)
[2017-01-20 08:49] LABS: ANION GAP 13 MEQ/L (2-14); CHLORIDE 101 MEQ/L (99-109); POTASSIUM 3.6 MEQ/L (3.7-5.4); SODIUM 144 MEQ/L (136-147)
[2017-01-20 09:02] LABS: GLUCOSE 195 mg/dL (70-99); UREA NITROGEN (BUN) 27 mg/dL (9-23)
[2017-01-20 13:25] LABS: POINT-OF-CARE METER ID UU14208751
[2017-01-20 16:08] LABS: BASE EXCESS 10.9 mEq/L (-3 to +3); BICARBONATE 35.7 mEq/L (22-26); CARBOXY HGB 1.8 % (0-5); DEVICE VENTIALTOR; FI02 100 %; MECHANICAL RATE 20 resp/min; METHEMOGLOBIN 1.6 % (0-1.5); MODE BILEVEL; PCO2 48 mm Hg (35-45); PO2 58 mm Hg (80-100); SITE RR; TOTAL RESP RATE 20 resp/min; pH 7.48 (7.35-7.45)
[2017-01-20 16:09] LABS: COMMENTS - BLOOD GASES A+C+
[2017-01-20 17:52] LABS: POINT-OF-CARE METER ID UU14208751
[2017-01-21] VITALS (16 sets, daily range): BP systolic 91–150; BP diastolic 50–84
[2017-01-21 01:34] LABS: POINT-OF-CARE METER ID UU14174217; POINT-OF-CARE USER ID 609231305
[2017-01-21 05:44] LABS: BASE EXCESS 9.8 mEq/L (-3 to +3); BICARBONATE 33.5 mEq/L (22-26); CARBOXY HGB 1.8 % (0-5); DEVICE 840; FI02 100 %; METHEMOGLOBIN 1.1 % (0-1.5); MODE BILEVEL 30/0; PCO2 41 mm Hg (35-45); PO2 62 mm Hg (80-100); SITE RR; pH 7.52 (7.35-7.45)
[2017-01-21 05:45] LABS: MECHANICAL RATE 24 resp/min; PEEP 0 CM/H20; PRES. SUPPORT 35 CM/H2O; PRESSURE CONTROL VENTILATION 30 CM H20; TOTAL RESP RATE 24 resp/min
[2017-01-21 06:04] LABS: EOSINOPHIL (%) 2.5 % (0-5); EOSINOPHIL COUNT 0.5 K/uL (0-0.3); HEMATOCRIT 34.4 % (36.0-46.0); IMMATURE GRANULOCYTE COUNT 0.2 K/uL; INSTRUMENT ABS NEUTROPHIL CT 17.2 K/uL; LYMPHOCYTE COUNT 1.3 K/uL (1.0-2.8); MCH 23.6 PG (29.0-34.0); MCHC 28.2 G/DL (30.0-36.0); MCV 83.7 FL (83-99); MEAN PLAT.VOLUME 12.7 uM^3 (9.5-12.4); MONOCYTE (%) 8.5 % (3-12); MONOCYTE COUNT 1.8 K/uL (0-0.8); NEUTROPHIL (%) 81.6 % (45-76); NEUTROPHIL COUNT 17.2 K/uL (1.8-6.4); NRBC (%) 0.2 /100 WBC (0-0); PLATELET COUNT 213 K/uL (156-360); RBC DIS.WIDTH-CV 18.6 % (11.8-14.6); RBC DIS.WIDTH-SD 56.1 % (39-53); RED BLOOD COUNT 4.11 M/uL (3.80-5.20)
[2017-01-21 06:31] LABS: ALKALINE PHOSPHATASE 74 IU/L (3-129); ANION GAP 14 MEQ/L (2-14); CHLORIDE 100 MEQ/L (99-109); GFR ESTIMATE (CALCULATED) 49 mL/min/; GLUCOSE 171 mg/dL (70-99); MAGNESIUM 2.7 mg/dl (1.3-2.7); POTASSIUM 3.6 MEQ/L (3.7-5.4); SAMPLE HEMOLYSIS CHECK 0; SAMPLE ICTERIC CHECK 0; SAMPLE LIPEMIA CHECK 0; SODIUM 144 MEQ/L (136-147); TOTAL BILIRUBIN 1.2 MG/DL (0.0-1.0); UREA NITROGEN (BUN) 32 mg/dL (9-23); VANCOMYCIN, TROUGH 15.2 MCG/ML (10-20)
[2017-01-21 07:01] LABS: INTER. NORMALIZED RATIO 1.5; PROTHROMBIN TIME 17.6 SEC (10.2-12.9)
[2017-01-21 13:43] LABS: POINT-OF-CARE METER ID UU14208751
[2017-01-21 16:29] LABS: DIGOXIN 1.2 ng/mL (0.8-2.0)
[2017-01-21 16:36] LABS: ANION GAP 11 MEQ/L (2-14); CHLORIDE 101 MEQ/L (99-109); POTASSIUM 4.3 MEQ/L (3.7-5.4); SAMPLE HEMOLYSIS CHECK 0; SAMPLE ICTERIC CHECK 0; SAMPLE LIPEMIA CHECK 0; SODIUM 141 MEQ/L (136-147)
[2017-01-21 16:42] LABS: GFR ESTIMATE (CALCULATED) 49 mL/min/; GLUCOSE 220 mg/dL (70-99); UREA NITROGEN (BUN) 36 mg/dL (9-23)
[2017-01-21 18:33] LABS: BASE EXCESS 6.4 mEq/L (-3 to +3); BICARBONATE 28.9 mEq/L (22-26); CARBOXY HGB 1.4 % (0-5); METHEMOGLOBIN 1.5 % (0-1.5); pH 7.55 (7.35-7.45)
[2017-01-21 18:34] LABS: DEVICE 840 VENTILATOR; FI02 100 %; MECHANICAL RATE 20 resp/min; MODE BILEVEL; PCO2 33 mm Hg (35-45); PO2 105 mm Hg (80-100); SITE A LINE; TOTAL RESP RATE 20 resp/min
[2017-01-21 18:35] LABS: COMMENTS - BLOOD GASES C+; PRES. SUPPORT 40 CM/H2O
[2017-01-21 18:56] LABS: POINT-OF-CARE METER ID UU14314082
[2017-01-21 22:28] LABS: BASE EXCESS 6.1 mEq/L (-3 to +3); BICARBONATE 29.5 mEq/L (22-26); CARBOXY HGB 1.3 % (0-5); METHEMOGLOBIN 1.4 % (0-1.5); PCO2 37 mm Hg (35-45); PO2 100 mm Hg (80-100); pH 7.51 (7.35-7.45)
[2017-01-21 22:29] LABS: SITE A-LINE
[2017-01-21 22:30] LABS: DEVICE 840; FI02 80 %; MECHANICAL RATE 18 resp/min; MODE BILEVEL; PEEP 0 CM/H20; PRESSURE CONTROL VENTILATION 35 CM H20; TOTAL RESP RATE 18 resp/min
[2017-01-22 00:54] LABS: POINT-OF-CARE METER ID UU14162636
[2017-01-22 04:41] LABS: EOSINOPHIL (%) 3.5 % (0-5); EOSINOPHIL COUNT 0.7 K/uL (0-0.3); HEMATOCRIT 33.4 % (36.0-46.0); IMMATURE GRANULOCYTE (%) 0.9 % (0.0-0.7); IMMATURE GRANULOCYTE COUNT 0.2 K/uL; INSTRUMENT ABS NEUTROPHIL CT 14.9 K/uL; LYMPHOCYTE COUNT 3.1 K/uL (1.0-2.8); MCH 23.5 PG (29.0-34.0); MCHC 28.4 G/DL (30.0-36.0); MCV 82.7 FL (83-99); MEAN PLAT.VOLUME 12.2 uM^3 (9.5-12.4); MONOCYTE (%) 10.9 % (3-12); MONOCYTE COUNT 2.3 K/uL (0-0.8); NEUTROPHIL (%) 70.1 % (45-76); NEUTROPHIL COUNT 14.9 K/uL (1.8-6.4); NRBC (%) 0.3 /100 WBC (0-0); PLATELET COUNT 232 K/uL (156-360); RBC DIS.WIDTH-CV 18.2 % (11.8-14.6); RBC DIS.WIDTH-SD 54.4 % (39-53); RED BLOOD COUNT 4.04 M/uL (3.80-5.20); WHITE BLOOD COUNT 21.3 K/uL (4.1-10.2)
[2017-01-22 04:58] LABS: CHLORIDE 103 mEq/L (99-109); MAGNESIUM 2.4 mg/dL (1.3-2.7); SODIUM 140 mEq/L (136-147)
[2017-01-22 05:00] LABS: GLUCOSE 155 mg/dL (70-99); INTER. NORMALIZED RATIO 1.6; PROTHROMBIN TIME 18.2 SEC (10.2-12.9)
[2017-01-22 05:01] LABS: ANION GAP 11 MEQ/L (2-14)
[2017-01-22 05:02] LABS: TOTAL BILIRUBIN 0.6 mg/dL (0.0-1.0)
[2017-01-22 05:04] LABS: ALKALINE PHOSPHATASE 76 IU/L (3-129); GFR ESTIMATE (CALCULATED) 44 mL/min/
[2017-01-22 05:05] LABS: UREA NITROGEN (BUN) 38 mg/dL (9-23)
[2017-01-22 05:08] LABS: POTASSIUM 3.4 mEq/L (3.7-5.4)
[2017-01-22 05:42] LABS: BASE EXCESS 7.1 mEq/L (-3 to +3); BICARBONATE 29.3 mEq/L (22-26); CARBOXY HGB 1.5 % (0-5); METHEMOGLOBIN 1.5 % (0-1.5); PO2 83 mm Hg (80-100)
[2017-01-22 05:43] LABS: DEVICE 840; FI02 60 %; MECHANICAL RATE 18 resp/min; MODE BILEVEL/APRV; PCO2 32 mm Hg (35-45); SITE A-LINE; TOTAL RESP RATE 18 resp/min
[2017-01-22 05:44] LABS: PEEP 0 CM/H20; PRES. SUPPORT 40 CM/H2O; PRESSURE CONTROL VENTILATION 35 CM H20; pH 7.57 (7.35-7.45)
[2017-01-22 06:05] LABS: POINT-OF-CARE METER ID UU14314082
[2017-01-22 11:16] LABS: BASE EXCESS 4.7 mEq/L (-3 to +3); BICARBONATE 28.1 mEq/L (22-26); CARBOXY HGB 1.8 % (0-5); METHEMOGLOBIN 1.6 % (0-1.5); PCO2 36 mm Hg (35-45); PO2 62 mm Hg (80-100); SITE ALINE
[2017-01-22 11:17] LABS: DEVICE 840; FI02 60 %; MECHANICAL RATE 18 resp/min; MODE BILEVEL; PRES. SUPPORT 40 CM/H2O; TOTAL RESP RATE 18 resp/min
[2017-01-22 11:18] LABS: COMMENTS - BLOOD GASES A+
[2017-01-22 12:56] LABS: POINT-OF-CARE METER ID UU14314082
[2017-01-22 18:34] LABS: POINT-OF-CARE METER ID UU14314082
[2017-01-23 04:34] LABS: BASE EXCESS 5.4 mEq/L (-3 to +3); BICARBONATE 28.9 mEq/L (22-26); CARBOXY HGB 1.4 % (0-5); COMMENTS - BLOOD GASES C+; DEVICE VENT; FI02 60 %; METHEMOGLOBIN 1.4 % (0-1.5); PCO2 37 mm Hg (35-45); PO2 98 mm Hg (80-100); SITE A-LINE
[2017-01-23 04:35] LABS: MECHANICAL RATE 18 resp/min; MODE BILEVEL 31/0; PRES. SUPPORT 40 CM/H2O; TOTAL RESP RATE 18 resp/min
[2017-01-23 04:45] LABS: POINT-OF-CARE METER ID UU13113803
[2017-01-23 05:13] LABS: HEMATOCRIT 32.8 % (36.0-46.0); IMMATURE GRANULOCYTE (%) 0.9 % (0.0-0.7); IMMATURE GRANULOCYTE COUNT 0.2 K/uL; INSTRUMENT ABS NEUTROPHIL CT 14.6 K/uL; LYMPHOCYTE COUNT 2.1 K/uL (1.0-2.8); MCH 23.6 PG (29.0-34.0); MCHC 28.7 G/DL (30.0-36.0); MCV 82.4 FL (83-99); MEAN PLAT.VOLUME 12.7 uM^3 (9.5-12.4); MONOCYTE (%) 11.1 % (3-12); MONOCYTE COUNT 2.3 K/uL (0-0.8); NEUTROPHIL (%) 72.4 % (45-76); NEUTROPHIL COUNT 14.6 K/uL (1.8-6.4); NRBC (%) 0.2 /100 WBC (0-0); PLATELET COUNT 243 K/uL (156-360); RBC DIS.WIDTH-CV 18.5 % (11.8-14.6); RBC DIS.WIDTH-SD 54.4 % (39-53); RED BLOOD COUNT 3.98 M/uL (3.80-5.20); WHITE BLOOD COUNT 20.2 K/uL (4.1-10.2)
[2017-01-23 05:29] LABS: INTER. NORMALIZED RATIO 1.5; PROTHROMBIN TIME 17.6 SEC (10.2-12.9)
[2017-01-23 05:30] LABS: CHLORIDE 101 mEq/L (99-109); POTASSIUM 3.2 mEq/L (3.7-5.4); SODIUM 142 mEq/L (136-147)
[2017-01-23 05:31] LABS: MAGNESIUM 2.3 mg/dL (1.3-2.7)
[2017-01-23 05:32] LABS: GLUCOSE 188 mg/dL (70-99)
[2017-01-23 05:34] LABS: ANION GAP 15 MEQ/L (2-14)
[2017-01-23 05:36] LABS: GFR ESTIMATE (CALCULATED) 54 mL/min/
[2017-01-23 05:37] LABS: UREA NITROGEN (BUN) 37 mg/dL (9-23)
[2017-01-23 12:48] LABS: POINT-OF-CARE METER ID UU13113803
[2017-01-23 16:27] LABS: ANION GAP 12 MEQ/L (2-14); CHLORIDE 100 MEQ/L (99-109); GFR ESTIMATE (CALCULATED) > 59 mL/min/; GLUCOSE 261 mg/dL (70-99); SAMPLE HEMOLYSIS CHECK 0; SAMPLE ICTERIC CHECK 0; SAMPLE LIPEMIA CHECK 0; SODIUM 137 MEQ/L (136-147); UREA NITROGEN (BUN) 40 mg/dL (9-23)
[2017-01-23 17:15] LABS: POINT-OF-CARE METER ID UU14208751
[2017-01-23 23:25] LABS: POINT-OF-CARE METER ID UU14314083
[2017-01-24] VITALS (25 sets, daily range): BP systolic 61–133; BP diastolic 46–115
[2017-01-24 03:34] LABS: EOSINOPHIL (%) 5.4 % (0-5); HEMATOCRIT 34.5 % (36.0-46.0); IMMATURE GRANULOCYTE (%) 1.4 % (0.0-0.7); IMMATURE GRANULOCYTE COUNT 0.3 K/uL; INSTRUMENT ABS NEUTROPHIL CT 14.3 K/uL; LYMPHOCYTE COUNT 1.6 K/uL (1.0-2.8); MCH 23.6 PG (29.0-34.0); MCV 81.4 FL (83-99); MEAN PLAT.VOLUME 12.1 uM^3 (9.5-12.4); MONOCYTE (%) 9.7 % (3-12); MONOCYTE COUNT 1.9 K/uL (0-0.8); NEUTROPHIL (%) 74.9 % (45-76); NEUTROPHIL COUNT 14.3 K/uL (1.8-6.4); NRBC (%) 0.5 /100 WBC (0-0); PLATELET COUNT 252 K/uL (156-360); RBC DIS.WIDTH-CV 18.7 % (11.8-14.6); RBC DIS.WIDTH-SD 54.2 % (39-53); RED BLOOD COUNT 4.24 M/uL (3.80-5.20); WHITE BLOOD COUNT 19.1 K/uL (4.1-10.2)
[2017-01-24 03:47] LABS: CHLORIDE 102 mEq/L (99-109); INTER. NORMALIZED RATIO 1.5; POTASSIUM 3.3 mEq/L (3.7-5.4); SODIUM 139 mEq/L (136-147)
[2017-01-24 03:49] LABS: GLUCOSE 198 mg/dL (70-99)
[2017-01-24 03:51] LABS: ANION GAP 13 MEQ/L (2-14)
[2017-01-24 03:53] LABS: GFR ESTIMATE (CALCULATED) 54 mL/min/
[2017-01-24 03:54] LABS: UREA NITROGEN (BUN) 42 mg/dL (9-23)
[2017-01-24 05:47] LABS: BASE EXCESS 3.3 mEq/L (-3 to +3); BICARBONATE 25.1 mEq/L (22-26); METHEMOGLOBIN 1.2 % (0-1.5)
[2017-01-24 05:48] LABS: COMMENTS - BLOOD GASES ALINE; DEVICE VENT; FI02 80 %; MECHANICAL RATE 18 resp/min; MODE BILEVEL; PCO2 28 mm Hg (35-45); PO2 340 mm Hg (80-100); PRES. SUPPORT 40 CM/H2O; SITE ALINE; TOTAL RESP RATE 21 resp/min
[2017-01-24 05:50] LABS: PRESSURE CONTROL VENTILATION 31 CM H20; pH 7.56 (7.35-7.45)
[2017-01-24 08:19] LABS: MAGNESIUM 2.4 mg/dl (1.3-2.7)
[2017-01-24 09:56] LABS: BASE EXCESS 0.1 mEq/L (-3 to +3); BICARBONATE 22.9 mEq/L (22-26); CARBOXY HGB 1.3 % (0-5); METHEMOGLOBIN 1.5 % (0-1.5); PCO2 30 mm Hg (35-45); pH 7.49 (7.35-7.45)
[2017-01-24 09:57] LABS: COMMENTS - BLOOD GASES C+; DEVICE 840; FI02 60 %; MECHANICAL RATE 18 resp/min; PO2 150 mm Hg (80-100); SITE ALINE
[2017-01-24 09:58] LABS: MODE BILEVEL 31/0; PEEP 0 CM/H20; PRES. SUPPORT 40 CM/H2O; PRESSURE CONTROL VENTILATION 31 CM H20; TOTAL RESP RATE 18 resp/min
[2017-01-24 12:56] LABS: POINT-OF-CARE METER ID UU14174217
[2017-01-24 17:24] LABS: ANION GAP 15 MEQ/L (2-14); CHLORIDE 100 MEQ/L (99-109); GFR ESTIMATE (CALCULATED) 44 mL/min/; GLUCOSE 243 mg/dL (70-99); SAMPLE HEMOLYSIS CHECK 0; SAMPLE ICTERIC CHECK 0; SAMPLE LIPEMIA CHECK 0; SODIUM 135 MEQ/L (136-147); UREA NITROGEN (BUN) 52 mg/dL (9-23)
[2017-01-24 17:25] LABS: POTASSIUM 4.6 MEQ/L (3.7-5.4)
[2017-01-24 18:09] LABS: POINT-OF-CARE METER ID UU14162636
[2017-01-25] VITALS (23 sets, daily range): BP systolic 75–125; BP diastolic 59–89
[2017-01-25 00:49] LABS: POINT-OF-CARE METER ID UU14162636
[2017-01-25 05:02] LABS: POINT-OF-CARE METER ID UU14314083
[2017-01-25 05:39] LABS: BASOPHIL COUNT 0.1 K/uL (0-0.1); EOSINOPHIL (%) 1.4 % (0-5); EOSINOPHIL COUNT 0.4 K/uL (0-0.3); HEMATOCRIT 34.2 % (36.0-46.0); IMMATURE GRANULOCYTE (%) 4.1 % (0.0-0.7); IMMATURE GRANULOCYTE COUNT 1.1 K/uL; INSTRUMENT ABS NEUTROPHIL CT 19.6 K/uL; LYMPHOCYTE COUNT 2.7 K/uL (1.0-2.8); MCH 23.1 PG (29.0-34.0); MCHC 28.4 G/DL (30.0-36.0); MCV 81.4 FL (83-99); MONOCYTE (%) 9.2 % (3-12); MONOCYTE COUNT 2.4 K/uL (0-0.8); NEUTROPHIL (%) 74.6 % (45-76); NEUTROPHIL COUNT 19.6 K/uL (1.8-6.4); NRBC (%) 0.7 /100 WBC (0-0); RBC DIS.WIDTH-CV 18.9 % (11.8-14.6); RBC DIS.WIDTH-SD 54.7 % (39-53); WHITE BLOOD COUNT 26.3 K/uL (4.1-10.2)
[2017-01-25 05:43] LABS: BASE EXCESS -2.5 mEq/L (-3 to +3); BICARBONATE 20.4 mEq/L (22-26); CARBOXY HGB 1.3 % (0-5); METHEMOGLOBIN 1.3 % (0-1.5); PCO2 28 mm Hg (35-45); PO2 99 mm Hg (80-100); pH 7.47 (7.35-7.45)
[2017-01-25 05:44] LABS: DEVICE 840; FI02 40 %; MECHANICAL RATE 14 resp/min; MODE BILEVEL; SITE ALINE; TOTAL RESP RATE 29 resp/min
[2017-01-25 05:44] LABS: INTER. NORMALIZED RATIO 1.7; PROTHROMBIN TIME 19.9 SEC (10.2-12.9)
[2017-01-25 05:46] LABS: PEEP 0 CM/H20; PRESSURE CONTROL VENTILATION 31 CM H20
[2017-01-25 06:12] LABS: PLATELET CLUMPS PRESENT - PLATELET COUNT APPEARS ADQ.; PLATELET COUNT UNABLE TO REPORT K/uL (156-360)
[2017-01-25 07:08] LABS: ALKALINE PHOSPHATASE 84 IU/L (3-129); ANION GAP 15 MEQ/L (2-14); CHLORIDE 101 MEQ/L (99-109); GFR ESTIMATE (CALCULATED) 38 mL/min/; GLUCOSE 187 mg/dL (70-99); MAGNESIUM 2.4 mg/dl (1.3-2.7); SAMPLE HEMOLYSIS CHECK 0; SAMPLE ICTERIC CHECK 0; SAMPLE LIPEMIA CHECK 0; SODIUM 137 MEQ/L (136-147); TRIGLYCERIDES 478 MG/DL (Normal: <150); UREA NITROGEN (BUN) 56 mg/dL (9-23)
[2017-01-25 07:10] LABS: POTASSIUM 3.5 MEQ/L (3.7-5.4); TOTAL BILIRUBIN 0.6 MG/DL (0.0-1.0)
[2017-01-25 11:41] LABS: POINT-OF-CARE METER ID UU14314083
== END 2017-01-25 17:26 | DRG 853 ==
LOC: EME 15:17 → 4EAST 20:31 → 5SOUTH 20:31 → 4WEST 20:31 → EDOF 20:31 → CANRESERV 20:36 → ENRESERV 20:36 → 4EAST 21:58 → ENRESERV 01-08 13:40 → 5SOUTH 01-08 15:28 → ENRESERV 01-10 11:13 → 4EAST 01-10 12:46 → 4WEST 01-14 15:02 → ENRESERV 01-14 15:23 → 4WEST 01-25 17:26
PROVIDERS: Hospitalist; Internal Medicine; Internal Medicine Cardiovascular Disease; Internal Medicine Critical Care Medicine; Nurse Practitioner Family; Specialist; Surgery
PROC: 5A09457 Assistance with Respiratory Ventilation, 24-96 Consecutive Hours, Continuous Positive Airway Pressure (ICD-10-PCS; principal; 2017-01-14)
PROC: 5A1955Z Respiratory Ventilation, Greater than 96 Consecutive Hours (ICD-10-PCS; 2017-01-16)
PROC: 0BH18EZ Insertion of Endotracheal Airway into Trachea, Via Natural or Artificial Opening Endoscopic (ICD-10-PCS; 2017-01-16)
PROC: 02HV33Z Insertion of Infusion Device into Superior Vena Cava, Percutaneous Approach (ICD-10-PCS; 2017-01-16)
PROC: 0B9J8ZX Drainage of Left Lower Lung Lobe, Via Natural or Artificial Opening Endoscopic, Diagnostic (ICD-10-PCS; 2017-01-18)
PROC: 5A2204Z Restoration of Cardiac Rhythm, Single (ICD-10-PCS; 2017-01-23)
PROC: 5A2204Z Restoration of Cardiac Rhythm, Single (ICD-10-PCS; 2017-01-25)
DX: A41.02 Sepsis due to Methicillin resistant Staphylococcus aureus (principal); L03.115 Cellulitis of right lower limb; B95.62 Methicillin resistant Staphylococcus aureus infection as the cause of diseases classified elsewhere; J18.9 Pneumonia, unspecified organism; J44.0 Chronic obstructive pulmonary disease with (acute) lower respiratory infection; T88.4XXA Failed or difficult intubation, initial encounter; J96.21 Acute and chronic respiratory failure with hypoxia; J96.22 Acute and chronic respiratory failure with hypercapnia; Z99.81 Dependence on supplemental oxygen; I11.0 Hypertensive heart disease with heart failure; I50.33 Acute on chronic diastolic (congestive) heart failure; E87.4 Mixed disorder of acid-base balance; I48.0 Paroxysmal atrial fibrillation; I48.1 Persistent atrial fibrillation; E11.622 Type 2 diabetes mellitus with other skin ulcer; I48.92 Unspecified atrial flutter; I47.1 Supraventricular tachycardia; I83.019 Varicose veins of right lower extremity with ulcer of unspecified site; I83.029 Varicose veins of left lower extremity with ulcer of unspecified site; L97.911 Non-pressure chronic ulcer of unspecified part of right lower leg limited to breakdown of skin; L97.929 Non-pressure chronic ulcer of unspecified part of left lower leg with unspecified severity; I95.9 Hypotension, unspecified; I27.81 Cor pulmonale (chronic); I27.29 Other secondary pulmonary hypertension; N28.9 Disorder of kidney and ureter, unspecified; E78.5 Hyperlipidemia, unspecified; I89.0 Lymphedema, not elsewhere classified; Z66 Do not resuscitate; Z51.5 Encounter for palliative care; E87.6 Hypokalemia; E66.2 Morbid (severe) obesity with alveolar hypoventilation; Z68.43 Body mass index [BMI] 50.0-59.9, adult; K21.9 Gastro-esophageal reflux disease without esophagitis; G43.909 Migraine, unspecified, not intractable, without status migrainosus; F41.9 Anxiety disorder, unspecified; D63.8 Anemia in other chronic diseases classified elsewhere; M19.90 Unspecified osteoarthritis, unspecified site; D23.71 Other benign neoplasm of skin of right lower limb, including hip; M79.3 Panniculitis, unspecified; L30.4 Erythema intertrigo; G89.29 Other chronic pain; M54.9 Dorsalgia, unspecified; I87.2 Venous insufficiency (chronic) (peripheral); L03.116 Cellulitis of left lower limb; I25.10 Atherosclerotic heart disease of native coronary artery without angina pectoris; M79.604 Pain in right leg; B35.6 Tinea cruris; E55.9 Vitamin D deficiency, unspecified; J98.01 Acute bronchospasm; J98.11 Atelectasis; Z86.711 Personal history of pulmonary embolism; Z86.718 Personal history of other venous thrombosis and embolism; Z79.01 Long term (current) use of anticoagulants; Z98.84 Bariatric surgery status; Z90.710 Acquired absence of both cervix and uterus; Z90.49 Acquired absence of other specified parts of digestive tract; Z87.891 Personal history of nicotine dependence; Z86.19 Personal history of other infectious and parasitic diseases; Z85.038 Personal history of other malignant neoplasm of large intestine; Z80.0 Family history of malignant neoplasm of digestive organs; Z80.3 Family history of malignant neoplasm of breast; Z82.3 Family history of stroke; Z83.3 Family history of diabetes mellitus
CPT/HCPCS: 36600; 36620; 71010; 71020; 76604; 76881; 76937; 80048; 80048 91; 80053; 80162; 80202; 81003; 82306; 82565; 82728; 82803; 82948; 83036; 83540; 83605; 83735; 83880; 84100; 84466; 84478; 84484; 85025; 85027; 85610; 85730; 87040; 87070; 87077; 87086; 87106; 87186; 87205; 87801; 93005; 94002; 94003; 94010; 94640; 94640 76; 94667; 94668; 94760; 94799; 97530 GO; 97530 GP; 99202; 99281; 99285; A6260; C1751; C1753; C1769; J0692; J1815; J1940; J1956; J2060; J2250; J2270; J2370; J2543; J2704; J3010; J3370; J3475; J3480; J7030; J7040; J7050; J7060; J7512; S0073